=== PATIENT | female | born 1950 ===

== ENCOUNTER → 2020-11-14 13:14 | Outpatient (BNVA) | payer MEDICARE, SELFPAY | PROVIDERS: Visit Provider Physician Assistant | DX: Z13.89 Encounter for screening for other disorder (principal) | CPT/HCPCS: Q3014 ==

== ENCOUNTER 2020-11-14 14:28 | Inpatient (IN) | payer MEDICARE, SELFPAY ==
[2020-11-14] VITALS (8 sets, daily range): BP systolic 87–109; BP diastolic 31–66; PULSE 41–57; RESP 16–18; TEMP 36.6–37.2; O2SAT 95–99; BMI 27.8
--- NOTE | ~2020-11-14 | XR_ITS ---
EXAMINATION: XR CHEST CLINICAL INFORMATION: Pneumonia COMPARISON: 10/30/2017 TECHNIQUE: Frontal view of the chest was obtained. FINDINGS: No significant abnormality is noted involving the heart, lungs, mediastinum, bony thorax or soft tissues. Previously seen streaky opacities at the lung bases in 2018 have resolved. XR/XR chest 1V IMPRESSION: Unremarkable examination.
--- NOTE | 2020-11-14 14:42 | ECG_ITS ---
Test Reason : BRADYCARDIA Blood Pressure : / mmHG Vent. Rate : 049 BPM Atrial Rate : 049 BPM P-R Int : 116 ms QRS Dur : 080 ms QT Int : 460 ms P-R-T Axes : 053 030 039 degrees QTc Int : 415 ms Sinus bradycardia Otherwise normal ECG When compared with ECG of 16-FEB-2019 10:45, No significant change was found Referred By: Generic ED Physician Electronically Signed By:EMERY ESTEVES
[2020-11-14 17:18] LABS: Hemoglobin 11.4 g/dl (12.0-16.0); Imm Gran Abs Auto 0.01 X10*3/uL (0.00-0.03); Imm Gran Pct Auto 0.2 % (0.0-0.4); PLT CLUMP 1; SCAN SMEAR FLAG 1
[2020-11-14 17:20] LABS: Basophils Percent Auto 0.7 % (0-2); Eosinophils Absolute Auto 0.2 X10*3/uL (0.0-0.4); Eosinophils Percent Auto 3.3 % (0-4); Hematocrit 35.7 % (37-47); Lymphocytes Absolute Auto 1.8 X10*3/uL (1.2-4.9); Lymphocytes Percent Auto 29.4 % (20-40); Mean Corpuscular HGB Conc 31.9 g/dl (31.0-35.0); Mean Corpuscular Hemoglobin 31.5 pg (27.0-33.0); Mean Corpuscular Volume 98.6 fL (80-98); Mean Platelet Volume 11.6 fL (9.4-12.3); Monocytes Absolute Auto 0.4 X10*3/uL (0.1-1.2); Monocytes Percent Auto 7.2 % (2-11); Neutrophils Absolute Auto 3.6 X10*3/uL (2.0-8.3); Neutrophils Percent Auto 59.2 % (45-73); Platelet Count 118 X10*3/uL (160-400); Red Blood Count 3.62 X10*6/uL (4.20-5.50); Red Cell Distribution Width 12.3 % (11.0-16.0); White Blood Count 6.1 X10*3/uL (4.8-10.8)
[2020-11-14 17:33] LABS: Anion Gap 11 (12-20); Blood Urea Nitrogen 19 mg/dL (9-16); Calcium 8.6 mg/dL (8.4-10.2); Carbon Dioxide 25 mmol/L (22-29); Chloride 107 mmol/L (96-108); Creatinine Clr Calc Pharmacy 51.7; Estimated Glomerular Filt Rate 56; Glucose Random 96 mg/dL (60-115); Sodium 138 mmol/L (135-145)
[2020-11-14 17:41] LABS: Troponin-I High Sensitivity 4.6 ng/L (<3.5-17.0)
[2020-11-14 17:44] LABS: Prothrombin Time 12.1 SEC (10.8-13.0)
[2020-11-14 17:47] LABS: Partial Thromboplastin Time 34.1 SEC (24.1-38.0)
[2020-11-14 17:56] LABS: Glucose Urine UA NEG (NEG); Leukocyte Esterase Urine NEG (NEG); Nitrite Urine NEG (NEG); PH 5.5 (5.0-8.0); Specific Gravity - Urine 1.025 (1.005-1.025); Urine Blood NEG (NEG); Urine Ketones NEG (NEG); Urine Protein NEG (NEG-TRACE)
[2020-11-14 18:01] LABS: Appearance Urine CLEAR; Color Urine YELLOW
[2020-11-14] MEDS: 0.9 % Sodium Chloride 1,000 ML 999 ML IV ×2 (18:09)
--- NOTE | 2020-11-14 18:38 | ED_ITS ---
HPI - General Adult General Chief complaint: Arrhythmia/Palpitations Stated complaint: LOW HEART RATE Time Seen by Provider: 11/14/20 19:59 Source: patient Mode of arrival: ambulatory Limitations: no limitations History of Present Illness HPI narrative: Patient presents to the ED for bradycardia. Patient was supposed to go for colonoscopy by gastroenterology today but wanted her vital signs she was found to be bradycardic. Patient denies having any symptoms. Patient denies ever having dizziness, chest pain, shortness of breath, weakness. Patient states at time of blood pressure was low she did not have any symptoms. Patient states presently in the ED she is asymptomatic. Patient denies any change in medication. Patient states only blood pressure medication lisinopril. Patient is not on any beta blockers. Patient states she takes trazadone and clonazepam and she states she did not take any extra dose of those meds. Patient denies any rectal bleeding. Related Data Home Medications Medication Instructions Recorded Confirmed clonazepam 1 tab PO BID PRN 11/14/20 11/14/20 lisinopril 1 tab PO DAILY 11/14/20 11/14/20 trazodone 1 tab PO BEDTIME 11/14/20 11/14/20 Allergies Allergy/AdvReac Type Severity Reaction Status Date / Time No Known Allergies Allergy Unverified 04/20/20 14:53 [No Known Allergies*] none Allergy Unknown Uncoded 02/03/20 00:00 Review of Systems Review of Systems: Yes all other systems are reviewed and are negative Constitutional: Constitutional: Reports as per HPI and Reports no additional constitutional complaints Eyes: Eyes: Reports as per HPI and Reports no additional eye complaints ENT: Reports system reviewed and no additional complaints, except as documented and Reports as per HPI Cardiovascular: Cardiovascular: Reports as per HPI and Reports no additional cardiovascular complaints Respiratory: Respiratory: Reports as per HPI and Reports no additional respi ratory complaints Gastrointestinal: Gastrointestinal: Reports as per HPI and Reports no additional gastrointestinal complaints Musculoskeletal: Musculoskeletal: Reports no additional musculoskeletal complaints and Reports as per HPI Neurologic: Reports system reviewed and no additional complaints, except as documented and Reports as per HPI Psychiatric: Psychiatric: Reports no additional psychiatric complaints and Reports as per HPI [facility] Social History Social History Advance Directives: No Advance Directives Information Provided: Yes Physical Exam Vital Signs: Vital Signs: Last Vital Signs Temp 98.9 F 11/14/20 18:10 Pulse 45 L 11/14/20 21:02 Resp 18 11/14/20 21:02 BP 109/60 11/14/20 21:02 Pulse Ox 97 11/14/20 21:02 Body Mass Index 27.8 Const: General: cooperative, healthy appearing, comfortable, no acute distress, well developed, alert, awake and Physically active HENMT: Head: Yes normal to inspection, Yes No palpable skull fracture present, Yes normocephalic and Yes atraumatic Eyes: General: appearance normal, both eyes and all related structures Neck: Neck: Yes normal visual inspection, Yes full ROM, Yes no l ymphadenopathy, Yes no meningeal signs, Yes trachea midline, Yes supple and No tender Chest: Chest palpation & inspection: normal inspection of the chest and normal palpation of entire chest wall Resp: Effort & Inspection: normal respiratory effort and able to speak in complete sentences Cardio: Jugular venous distension: no JVD Heart sounds: S1 normal heart sound present and S2 normal heart sound present GI: Inspection: Yes normal to inspection Palpation (GI): Soft to palpation, not firm, nontender, no guarding and not rigid : General: No CVA tenderness and Yes no CVA tenderness Back/Spine/Pelvis: Back: no CVA tenderness, No CVA tenderness and No back tenderness Skin: General skin exam: no rashes or lesions noted and elasticity normal Neuro: Other: Negative nystagmus. Negative pronator drift. All extremities equal strength and 5+. Negative slurred speech. Negative Romberg. Rapid hand and [id number] test intact General: gait normal, no meningeal signs and CN's II-XI intact bilaterally Cranial nerves: Yes CN's II-XII intact bilaterally Extrem: General: Yes normal to inspection and Yes full ROM Course Course Course Narrative: Patient's sinus bradycardic. Patient presently asymptomatic. EKG shows sinus Abundio. Patient will have cardiac evaluation to make sure there is no heart attack. Source of infection will also be searched to make sure bradycardia is not caused by an infection. Patient will have orthostatics done and fluids Reevaluation(s) Reevaluation #1: Monitor heart rate went up to 57 and then went back down to 40s. Still asymptomatic. Reevaluation #2: Patient's orthostatics were negative. Patient heart rate dropped to 38 and then went back up to 48. Patient still is asymptomatic. Patient received IV fluids. No source of infection. Patient's chest x-ray UA normal. Case presented to hospitalist for admission. Hospitalist is agreeable to plan for admission for sinus bradycardia. Once again not suspecting stroke. Negative for any neuro deficit. Medical Decision Making MDM Narrative Medical decision making narrative: Bradycardia Lab Data Result diagrams: 11/14/20 17:01 11/14/20 17:01 Labs: Lab Results 11/14/20 11/14/20 11/14/20 Range/Units 17: 17:01 17:01 WBC 6.1 (4.8-10.8) X10*3/uL RBC 3.62 L (4.20-5.50) X10*6/uL Hgb 11.4 L (12.0-16.0) g/dl Hct 35.7 L (37-47) % MCV 98.6 H (80-98) fL MCH 31.5 (27.0-33.0) pg MCHC 31.9 (31.0-35.0) g/dl RDW 12.3 (11.0-16.0) % Plt Count 118 L (160-400) X10*3/uL MPV 11.6 (9.4-12.3) fL Immature Gran % (Auto) 0.2 (0.0-0.4) % Neut % (Auto) 59.2 (45-73) % Lymph % (Auto) 29.4 (20-40) % [place] % (Auto) 7.2 (2-11) % Eos % (Auto) 3.3 (0-4) % Baso % (Auto) 0.7 (0-2) % Lymph # (Auto) 1.8 (1.2-4.9) X10*3/uL [place] # (Auto) 0.4 (0.1-1.2) X10*3/uL Eos # (Auto) 0.2 (0.0-0.4) X10*3/uL Baso # (Auto) 0.0 (0.0-0.2) X10*3/uL Abs Immat Gran (auto) 0.01 (0.00-0.03) X10*3/uL Absolute Neuts (auto) 3.6 (2.0-8.3) X10*3/uL Absolute Nucleated RBC 0.000 (0.0-0.012) X10*3/uL Nucleated RBC % (auto) 0.0 (0.0-0.2) /100WBC PT 12.1 (10.8-13.0) SEC INR 1.0 (0.9-1.1) APTT 34.1 (24.1-38.0) SEC Hold Blue Top SEE NOTE Sodium 138 (135-145) mmol/L Potassium 5.0 (3.3-5.1) mmol/L Chloride 107 (96-108) mmol/L Carbon Dioxide 25 (22-29) mmol/L Anion Gap 11 L (12-20) BUN 19 H (9-16) mg/dL Creatinine 0.98 (0.5-1.4) mg/dL Estim Creat Clear Calc 51.7 Estimated GFR 56 Random Glucose 96 (60-115) mg/dL Calcium 8.6 (8.4-10.2) mg/dL Troponin I High Sens (<3.5-17.0) ng/L Urine Color Urine Appearance Urine pH (5.0-8.0) Ur Specific [place] (1.005-1.025) Urine Protein (NEG-TRACE) MG/DL Urine Glucose (UA) (NEG) MG/DL Urine Ketones (NEG) MG/DL Urine Blood (NEG) Urine Nitrite (NEG) Ur Leukocyte Esterase (NEG) 11/14/20 11/14/20 Range/Units 17:01 17:49 WBC (4.8-10.8) X10*3/uL RBC (4.20-5.50) X10*6/uL Hgb (12.0-16.0) g/dl Hct (37-47) % MCV (80-98) fL MCH (27.0-33.0) pg MCHC (31.0-35.0) g/dl RDW (11.0-16.0) % Plt Count (160-400) X10*3/uL MPV (9.4-12.3) fL Immature Gran % (Auto) (0.0-0.4) % Neut % (Auto) (45-73) % Lymph % (Auto) (20-40) % [place] % (Auto) (2-11) % Eos % (Auto) (0-4) % Baso % (Auto) (0-2) % Lymph # (Auto) (1.2-4.9) X10*3/uL [place] # (Auto) (0.1-1.2) X10*3/uL Eos # (Auto) (0.0-0.4) X10*3/uL Baso # (Auto) (0.0-0.2) X10*3/uL Abs Immat Gran (auto) (0.00-0.03) X10*3/uL Absolute Neuts (auto) (2.0-8.3) X10*3/uL Absolute Nucleated RBC (0.0-0.012) X10*3/uL Nucleated RBC % (auto) (0.0-0.2) /100WBC PT (10.8-13.0) SEC INR (0.9-1.1) APTT (24.1-38.0) SEC Hold Blue Top Sodium (135-145) mmol/L Potassium (3.3-5.1) mmol/L Chloride (96-108) mmol/L Carbon Dioxide (22-29) mmol/L Anion Gap (12-20) BUN (9-16) mg/dL Creatinine (0.5-1.4) mg/dL Estim Creat Clear Calc Estimated GFR Random Glucose (60-115) mg/dL Calcium (8.4-10.2) mg/dL Troponin I High Sens 4.6 (<3.5-17.0) ng/L Urine Color YELLOW Urine Appearance CLEAR Urine pH 5.5 (5.0-8.0) Ur Specific [place] 1.025 (1.005-1.025) Urine Protein NEG (NEG-TRACE) MG/DL Urine Glucose (UA) NEG (NEG) MG/DL Urine Ketones NEG (NEG) MG/DL Urine Blood NEG (NEG) Urine Nitrite NEG (NEG) Ur Leukocyte Esterase NEG (NEG) ECG Data Interpretation: Sinus bradycardia. First-degree 49. Pr interval 116. QRS 80. QTC 415. Negative STEMI Discharge Plan Discharge Clinical Impression: Bradycardia Patient Disposition: Admitted As Inpatient
--- NOTE | 2020-11-14 20:49 | P.HPHOSP_ITS ---
History of Present Illness Date of Service: 11/14/20 Chief Complaint: Bradycardia 70-year-old female with a past medical history of hypertension, anxiety presented to the hospital with a chief complaint of bradycardia. Patient reported that she went to the gastroenterology clinic for colonoscopy today where she was noted to have bradycardia subsequently sent to the ER for further evaluation. Patient denies any lightheadedness dizziness. Denies any recent travel sick contacts. Denies any falls or syncopal episodes. Denies any numbness tingling. Denies any fever chills cough. Denies any GI or symptom s. Review of all other systems is negative except mentioned above ER course: Per ER team patient was asymptomatic. Patient noted to be bradycardic to low 40s. Even noted couple readings of 38. Patient remained asymptomatic. Patient also had an episode of low blood pressure-given IV fluids. Blood pressure improved to 109/52. Admitted to the hospital for further management PMFSH Social History Alcohol intake: never Smoking Status: Never smoker service: No Current occupational status: retired [employer] Allergies Allergy/AdvReac Type Severity Reaction Status Date / Time No Known Allergies Allergy Unverified 04/20/20 14:53 [No Known Allergies*] none Allergy Unknown Uncoded 02/03/20 00:00 Home Medications Medication Instructions Recorded Confirmed Last Taken Type clonazepam 1 tab PO BID PRN 11/14/20 11/14/20 Unknown History lisinopril 1 tab PO DAILY 11/14/20 11/14/20 Unknown History trazodone 1 tab PO BEDTIME 11/14/20 11/14/20 Unknown History Physical Exam Vital Signs and Narrative: Vital Signs: Last Vital Signs Temp 98.9 F 11/14/20 18:10 Pulse 43 L 11/14/20 18:57 Resp 16 11/14/20 18:57 BP 109/52 L 11/14/20 18:57 Pulse Ox 99 11/14/20 18:57 Body Mass Index 27.8 Gen: Appears be in no acute distress HEENT: NCAT, Moist mucosa. Pulmonary: Vesicular breath sounds, fair air entry CVS: Normal S1-S2 Abdomen: BS+, Soft, Nontender Extremities: Warm well perfused Neuro: Alert and awake. Grossly nonfocal Results Labs CBC and Chem 7: 11/15/20 06:50 11/15/20 06:50 Labs: Laboratory Results - last 24 hr 11/14/20 11/14/20 11/14/20 17:01 17:01 17:01 MCV 98.6 H MCH 31.5 MCHC 31.9 RDW 12.3 Plt Count 118 L MPV 11.6 Immature Gran % (Auto) 0.2 Neut % (Auto) 59.2 Lymph % (Auto) 29.4 [place] % (Auto) 7.2 Eos % (Auto) 3.3 Baso % (Auto) 0.7 Lymph # (Auto) 1.8 [place] # (Auto) 0.4 Eos # (Auto) 0.2 Baso # (Auto) 0.0 Abs Immat Gran (auto) 0.01 Absolute Neuts (auto) 3.6 Absolute Nucleated RBC 0.000 Nucleated RBC % (auto) 0.0 PT 12.1 INR 1.0 APTT 34.1 Hold Blue Top SEE NOTE Anion Gap 11 L Estim Creat Clear Calc 51.7 Estimated GFR 56 Random Glucose 96 Calcium 8.6 Troponin I High Sens Urine Color Urine Appearance Urine pH Ur Specific [place] Urine Protein Urine Glucose (UA) Urine Ketones Urine Blood Urine Nitrite Ur Leukocyte Esterase 11/14/20 11/14/20 17:01 17:49 MCV MCH MCHC RDW Plt Count MPV Immature Gran % (Auto) Neut % (Auto) Lymph % (Auto) [place] % (Auto) Eos % (Auto) Baso % (Auto) Lymph # (Auto) [place] # (Auto) Eos # (Auto) Baso # (Auto) Abs Immat Gran (auto) Absolute Neuts (auto) Absolute Nucleated RBC Nucleated RBC % (auto) PT INR APTT Hold Blue Top Anion Gap Estim Creat Clear Calc Estimated GFR Random Glucose Calcium Troponin I High Sens 4.6 Urine Color YELLOW Urine Appearance CLEAR Urine pH 5.5 Ur Specific [place] 1.025 Urine Protein NEG Urine Glucose (UA) NEG Urine Ketones NEG Urine Blood NEG Urine Nitrite NEG Ur Leukocyte Esterase NEG Imaging Radiologist's Impressions: Impressions Chest X-Ray 11/14/20 18:05 IMPRESSION: Unremarkable examination. Assessment and Plan (1) Bradycardia: Status: Acute 70-year-old female with a past medical history of anxiety, hypertension on lisinopril presented to the hospital with a chief complaint of bradycardia. Bradycardia: Asymptomatic. Will monitor on telemetry. Will obtain TSH and echocardiogram. Cardiology consult for further recommendations Bedside pacers Hypertension: Patient on lisinopril at home. Patient had an episode of low blood pressure in the ER. Asymptomatic. Continue gentle IV fluids. Hold home antihypertensives. History of anxiety: Continue home: Aspirin. DVT prophylaxis: SCD boots Code status: Full code
[2020-11-14 21:44] LABS: COVID-19 Test Negative (Negative)
[2020-11-15] VITALS (8 sets, daily range): BP systolic 122–155; BP diastolic 62–80; PULSE 48–64; RESP 18–26; TEMP 36.7–37.1; O2SAT 97–98
[2020-11-15] MEDS: 0.9 % Sodium Chloride Flush 3 ML SYRINGE IVFLUSH (00:26)
[2020-11-15] MEDS: 0.9 % Sodium Chloride 1,000 ML 100 ML IVCONT (00:26)
[2020-11-15 07:01] LABS: MANUAL DIFF FLAG NO
[2020-11-15 07:12] LABS: Basophils Percent Auto 0.6 % (0-2); Eosinophils Absolute Auto 0.2 X10*3/uL (0.0-0.4); Eosinophils Percent Auto 3.8 % (0-4); Hematocrit 32.9 % (37-47); Hemoglobin 10.9 g/dl (12.0-16.0); Imm Gran Abs Auto 0.01 X10*3/uL (0.00-0.03); Imm Gran Pct Auto 0.2 % (0.0-0.4); Lymphocytes Percent Auto 43.3 % (20-40); Mean Corpuscular HGB Conc 33.1 g/dl (31.0-35.0); Mean Corpuscular Hemoglobin 32.3 pg (27.0-33.0); Mean Corpuscular Volume 97.6 fL (80-98); Mean Platelet Volume 11.7 fL (9.4-12.3); Monocytes Absolute Auto 0.4 X10*3/uL (0.1-1.2); Monocytes Percent Auto 7.5 % (2-11); Neutrophils Absolute Auto 2.1 X10*3/uL (2.0-8.3); Neutrophils Percent Auto 44.6 % (45-73); Platelet Count 104 X10*3/uL (160-400); Red Blood Count 3.37 X10*6/uL (4.20-5.50); Red Cell Distribution Width 12.1 % (11.0-16.0); White Blood Count 4.7 X10*3/uL (4.8-10.8)
[2020-11-15 07:31] LABS: Anion Gap 8 (12-20); Blood Urea Nitrogen 15 mg/dL (9-16); Calcium 8.3 mg/dL (8.4-10.2); Carbon Dioxide 22 mmol/L (22-29); Chloride 115 mmol/L (96-108); Creatinine Clr Calc Pharmacy 62.6; Estimated Glomerular Filt Rate > 60; Glucose Random 85 mg/dL (60-115); Potassium 4.6 mmol/L (3.3-5.1); Sodium 140 mmol/L (135-145)
--- NOTE | 2020-11-15 07:42 | PC.NURSE ---
UP TO BR. AMB WITHOUT DIFFICULTY. IV SITE PATENT. NO C/O
[2020-11-15 07:52] LABS: Thyroid Stimulating Hormone 0.56 uIU/mL (0.32-4.0)
--- NOTE | 2020-11-15 09:30 | MHC.CM.PN ---
pt lives alone in her apt. she reports that she is independent in her care. she does have a son that lives in the area that can help, but this is limited as he works . pt is reporting that she willl need a ride home at [facility] courtesy van. she ambulates s the use of any AD. pt denies the need for vna at or. dc plan is home no svcs. cm to cont. to follow.
--- NOTE | 2020-11-15 10:47 | P.CONCA_ITS ---
History of Present Illness History of Present Illness Date of Service: 11/15/20 Consult reason: other (Bradycardia) Chief complaint: Bradycardia Narrative: This is a cardiology consultation regarding bradycardia. She has a history of hypertension. It appears that she went for a colonoscopy and was found to have bradycardia and then sent to the ER. She denies any lightheadedness or presyncopal symptoms. She also denies any chest pain or shortness of breath or in fact any other cardiac symptoms. While in the ER, her heart rates has been in the 40s overnight and currently it is in the low 50s. She feels well. No history of any coronary disease myocardial infarction or any other cardiac concerns. Review of Systems Review of Systems: Yes all other systems are reviewed and are negative Cardiovascular: Cardiovascular: Reports as per HPI, Reports no additional cardiovascular complaints, Denies acrocyanosis, Denies cool extremities, Denies painful fingertips, Denies chest pain, Denies chest pain at rest, Denies diaphoresis, Denies syncope, Denies irregular heart rhythm, Denies claudication, Denies leg edema, Denies lightheadedness, Denies palpitations and Denies dyspnea Respiratory: Respiratory: Denies dyspnea Neurologic: Denies syncope Endocrine: Endocrine: Denies palpitations PMFSH Social History Social History Alcohol intake: never Smoking Status: Never smoker Use of substances other than those prescribed or required for medical reasons: No Advance Directives: No Advance Directives Information Provided: Yes service: No Current occupational status: retired [employer] Allergies Allergy/AdvReac Type Severity Reaction Status Date / Time No Known Allergies Allergy Unverified 04/20/20 14:53 [No Known Allergies*] none Allergy Unknown Uncoded 02/03/20 00:00 Active Medications: Current Medications Generic Name Dose Route Start Last Admin Trade Name Freq PRN Reason Stop Dose Admin Acetaminophen 650 mg 11/14/20 20:47 Acetaminophen 325 Mg Tablet PO Q6H PRN Pain, Mild (Pain Scale 1-3) Clonazepam 0.5 mg 11/15/20 02:24 Clonazepam 0.5 Mg Tablet PO BID PRN anxiety Sodium Chloride 1,000 mls @ 100 mls/hr 11/14/20 21:00 11/15/20 10:24 Ns IVCONT Not Given .Q10H KENIA Magnesium Hydroxide 30 ml 11/14/20 20:47 Milk Of Magnesia 30 Ml Oral.Susp PO DAILY PRN Constipation Pharmacy Consult 1 each 11/14/20 21:15 Consult Rx Perform Med Rec MISCELLANE ONCE PRN Consult order Sodium Chloride 3 ml 11/15/20 00:00 11/15/20 09:16 0.9 % Sodium Chloride Flush 3 Ml Syringe IVFLUSH Not Given QSHIFT [facility] Trazodone HCl 50 mg 11/15/20 21:00 Trazodone Hcl 50 Mg Tablet PO BEDTIME [facility] Home Medications Medication Instructions Recorded Confirmed Last Taken Type clonazepam 1 tab PO BID PRN 11/14/20 11/14/20 Unknown History lisinopril 1 tab PO DAILY 11/14/20 11/14/20 Unknown History trazodone 1 tab PO BEDTIME 11/14/20 11/14/20 Unknown History Physical Exam Vital Signs: Vital Signs: Last Vital Signs Temp 98.7 F 11/15/20 07:16 Pulse 53 11/15/20 07:41 Resp 26 H 11/15/20 07:41 BP 145/62 H 11/15/20 07:41 Pulse Ox 98 11/15/20 07:41 Body Mass Index 27.8 Const: General: cooperative, comfortable and no acute distress Orientation/consciousness: patient oriented x3 HENMT: Other: Unremarkable Neck: Neck: Yes normal visual inspection Chest: Chest palpation & inspection: normal inspection of the chest Resp: Auscultation: clear to auscultation bilaterally, no crackles and no wheezes Cardio: Jugular venous distension: no JVD Palpation: normal PMI Heart sounds: S1 normal heart sound present, S2 normal heart sound present, no gallops, no murmurs and no rubs GI: Palpation (GI): Soft to palpation Back/Spine/Pelvis: Other: unremarkable Skin: General skin exam: no rashes or lesions noted Neuro: General: patient oriented x3 Extrem: General: Yes no clubbing, cyanosis or edema Psych: Mental Status: mental status grossly normal Results Labs and Meds Result diagrams: 11/15/20 06:50 11/15/20 06:50 Lab results: Laboratory Results - last 24 hr 11/14/20 11/14/20 11/14/20 17:01 17:01 17:01 WBC 6.1 RBC 3.62 L Hgb 11.4 L Hct 35.7 L MCV 98.6 H MCH 31.5 MCHC 31.9 RDW 12.3 Plt Count 118 L MPV 11.6 Immature Gran % (Auto) 0.2 Neut % (Auto) 59.2 Lymph % (Auto) 29.4 [place] % (Auto) 7.2 Eos % (Auto) 3.3 Baso % (Auto) 0.7 Lymph # (Auto) 1.8 [place] # (Auto) 0.4 Eos # (Auto) 0.2 Baso # (Auto) 0.0 Abs Immat Gran (auto) 0.01 Absolute Neuts (auto) 3.6 Absolute Nucleated RBC 0.000 Nucleated RBC % (auto) 0.0 PT 12.1 INR 1.0 APTT 34.1 Hold Blue Top SEE NOTE Sodium 138 Potassium 5.0 Chloride 107 Carbon Dioxide 25 Anion Gap 11 L BUN 19 H Creatinine 0.98 Estim Creat Clear Calc 51.7 Estimated GFR 56 Random Glucose 96 Calcium 8.6 Troponin I High Sens TSH Urine Color Urine Appearance Urine pH Ur Specific [place] Urine Protein Urine Glucose (UA) Urine Ketones Urine Blood Urine Nitrite Ur Leukocyte Esterase COVID-19 (KIERAN) COVID-CE2 [employer] 11/14/20 11/14/20 11/14/20 17:01 17:49 21:24 WBC RBC Hgb Hct MCV MCH MCHC RDW Plt Count MPV Immature Gran % (Auto) Neut % (Auto) Lymph % (Auto) [place] % (Auto) Eos % (Auto) Baso % (Auto) Lymph # (Auto) [place] # (Auto) Eos # (Auto) Baso # (Auto) Abs Immat Gran (auto) Absolute Neuts (auto) Absolute Nucleated RBC Nucleated RBC % (auto) PT INR APTT Hold Blue Top Sodium Potassium Chloride Carbon Dioxide Anion Gap BUN Creatinine Estim Creat Clear Calc Estimated GFR Random Glucose Calcium Troponin I High Sens 4.6 TSH Urine Color YELLOW Urine Appearance CLEAR Urine pH 5.5 Ur Specific [place] 1.025 Urine Protein NEG Urine Glucose (UA) NEG Urine Ketones NEG Urine Blood NEG Urine Nitrite NEG Ur Leukocyte Esterase NEG COVID-19 (KIERAN) Negative COVID-CE2 [employer] See Note 11/15/20 11/15/20 11/15/20 06:50 06:50 06:50 WBC 4.7 L RBC 3.37 L Hgb 10.9 L Hct 32.9 L MCV 97.6 MCH 32.3 MCHC 33.1 RDW 12.1 Plt Count 104 L MPV 11.7 Immature Gran % (Auto) 0.2 Neut % (Auto) 44.6 L Lymph % (Auto) 43.3 H [place] % (Auto) 7.5 Eos % (Auto) 3.8 Baso % (Auto) 0.6 Lymph # (Auto) 2.0 [place] # (Auto) 0.4 Eos # (Auto) 0.2 Baso # (Auto) 0.0 Abs Immat Gran (auto) 0.01 Absolute Neuts (auto) 2.1 Absolute Nucleated RBC 0.000 Nucleated RBC % (auto) 0.0 PT INR APTT Hold Blue Top Sodium 140 Potassium 4.6 Chloride 115 H Carbon Dioxide 22 Anion Gap 8 L BUN 15 Creatinine 0.81 Estim Creat Clear Calc 62.6 Estimated GFR > 60 Random Glucose 85 Calcium 8.3 L Troponin I High Sens TSH 0.56 Urine Color Urine Appearance Urine pH Ur Specific [place] Urine Protein Urine Glucose (UA) Urine Ketones Urine Blood Urine Nitrite Ur Leukocyte Esterase COVID-19 (KIERAN) COVID-19 Clin Com ECG Attestation: I personally reviewed and interpreted this ECG as follows: Interpretation: EKG from yesterday with sinus bradycardia at 49/Min; no significant ST-T changes and with normal ND/QTc. Telemetry with overnight rates in the 40s. Currently 52/Min. Imaging Radiologist's impression: Impressions Chest X-Ray 11/14/20 18:05 IMPRESSION: Unremarkable examination. Assessment and Plan (1) Sinus bradycardia by electrocardiogram: Status: Acute High sensitivity troponin unremarkable at 4.6. Overall, she has benign sinus bradycardia. Not on any beta-blockers or calcium channel blockers at home. Clinically, examination is unremarkable. She may be discharged home.
--- NOTE | 2020-11-15 11:00 | CA_ITS ---
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 The visually estimated ejection fraction is between 65-70%. - No obvious valvular pathology seen on this study. - Mild pulmonary hypertension is present. Findings Left Ventricle Normal left ventricular cavity size. There is mildly increased left ventricular wall thickness. The left ventricular systolic function is normal. The visually estimated ejection fraction is between 65-70%. There is no evidence of regional wall motion abnormalities. Diastolic function is normal for age. Right Ventricle Normal right ventricular cavity size and systolic function. Atria Both atria are normal in size. Aortic Valve There is a normal trileaflet aortic valve. There is no aortic valve stenosis. There is no aortic valve regurgitation. Mitral Valve The mitral valve appears normal. There is trace mitral valve regurgitation. There is no mitral valve stenosis. Pulmonic Valve The pulmonic valve was not well visualized. Tricuspid Valve Normal tricuspid valve structure. There is mild tricuspid valve regurgitation. The right ventricular systolic pressure is 40 mmHg. Mild pulmonary hypertension is present. Great Vessels The aorta was not well visualized. The aortic annulus is normal in size. Venous The inferior vena cava is normal in size and collapses greater than 50% with inspiration. Pericardium/Pleural There is no evidence of pericardial effusion. Prior Study Comparison No prior study available for comparison. Recommendations, Care & Conclusions No obvious valvular pathology seen on this study. Measurements 2D Linear Measurements IVSd: 1.09 0.6-0.9/0.6-1.0 cm LVIDd: 4.28 3.9-5.3/4.2-5.9 cm LVIDd Index: 2.39 2.4-3.2/2.2-3.1 cm/m2 LVIDs: 2.64 2.0-3.6 cm LVPWd: 1.06 0.7-1.1 cm Ao Root: 3.10 2.1-3.5 cm LA Diam: 3.30 2.7-3.8/3.0-4.0 cm LAIDs Index: 1.84 1.5-2.3 cm/m2 LV Mass: 194.94 67-162/88-224 g LV Mass Index: 108.91 43-95/49-115 g/m2 LVOT Diam: 2.00 3.0+(-)1.3 cm Mitral Valve MV Pk E: 0.99 MV PK A: 1.15 MV Decel Time: 158.00 E/A: 0.90 E'Lateral: 9.09 E'Medial: 9.28 E/E' Med: 10.70 E/E' Lat: 10.90 PHT: 46.00 MVA PHT: 4.78 Decel Anderson: 6.28 Aortic Valve AoV Pk Raza: 1.65 AoV Mn Raza: 1.07 AoV VTI: 0.39 AoV Pk Grad: 11.00 Aov Mn Grad: 6.00 GAYATRI Cont.VTI: 2.12 LVOT LVOT Pk Raza: 1.16 LVOT Mn Raza: 0.74 LVOT VTI: 0.27 LVOT Pk Grad: 5.00 LVOT Mn Grad: 3.00 LVOT Diam: 2.00 LVOT Area: 3.14 Diastolic Function MV Pk E: 0.99 MV Pk A: 1.15 E/A: 0.90 E'Medial: 9.28 E/E' Med: 10.70 E' Laterial: 9.09 E/E' Lat: 10.90 Tricuspid Valve TR Pk Raza: 2.89 TR Pk Grad: 33.00 RA Press: 3.00 RVSP: 40.00 Great Vessels Aorta Ao Root-2D: 3.10 2.0-3.7 cm Ao Asc: 3.80 2.1-3.4 cm Pulmonary Valve PV Pk Raza: 0.84 Peak PV Grad: 3.00 Updated in Other Vendor System with Status of Final Wong Cardenas MD electronically signed on 11/15/2020 12:30:23 PM with status of Final
--- NOTE | 2020-11-15 12:13 | P.DS_ITS ---
DS: Providers Provider Date of Service: 11/15/20 Date of admission: 11/14/20 20:47 Primary care physician: Divina Hill MD Consults: 11/14/20 20:47 Consult to Cardiology Routine Consulting Provider: Wong Cardenas Reason for consultation: Bradycardia DS: Diagnosis Discharge Diagnosis (1) Sinus bradycardia by electrocardiogram: Status: Acute DS: Medications Discharge Medications Home Medications: Home Medications Medication Instructions Recorded Confirmed clonazepam 1 tab PO BID PRN 11/14/20 11/14/20 lisinopril 1 tab PO DAILY 11/14/20 11/14/20 trazodone 1 tab PO BEDTIME 11/14/20 11/14/20 DS: Summary Hospital Course Hospital Course: patient was sent in for sinus bradycardia, she was asymptomatic and seen by cardiology who recommended no intervention. Time Spent with Patient Time attestation: Total time spent providing and/or coordinating discharge services: Discharge coordination time: Greater than 30 minutes Physical Exam Vital Signs: Vital Signs: Last Vital Signs Temp 98.7 F 11/15/20 07:16 Pulse 48 L 11/15/20 12:00 Resp 18 11/15/20 12:00 BP 122/65 11/15/20 12:00 Pulse Ox 98 11/15/20 07:41 Body Mass Index 27.8 General: AO X 3, no acute distress Resp: CTA bilateral CVS: S1,S2,RRR GI: soft, non tender, non distended Neuro: motor grossly intact Psych: appropriate affect DS: Data Data Completed and Pending Labs on day of discharge: Laboratory Results - last 24 hr 11/14/20 11/14/20 11/14/20 17:01 17:01 17:01 WBC 6.1 RBC 3.62 L Hgb 11.4 L Hct 35.7 L MCV 98.6 H MCH 31.5 MCHC 31.9 RDW 12.3 Plt Count 118 L MPV 11.6 Immature Gran % (Auto) 0.2 Neut % (Auto) 59.2 Lymph % (Auto) 29.4 [place] % (Auto) 7.2 Eos % (Auto) 3.3 Baso % (Auto) 0.7 Lymph # (Auto) 1.8 [place] # (Auto) 0.4 Eos # (Auto) 0.2 Baso # (Auto) 0.0 Abs Immat Gran (auto) 0.01 Absolute Neuts (auto) 3.6 Absolute Nucleated RBC 0.000 Nucleated RBC % (auto) 0.0 PT 12.1 INR 1.0 APTT 34.1 Hold Blue Top SEE NOTE Sodium 138 Potassium 5.0 Chloride 107 Carbon Dioxide 25 Anion Gap 11 L BUN 19 H Creatinine 0.98 Estim Creat Clear Calc 51.7 Estimated GFR 56 Random Glucose 96 Calcium 8.6 Troponin I High Sens TSH Urine Color Urine Appearance Urine pH Ur Specific [place] Urine Protein Urine Glucose (UA) Urine Ketones Urine Blood Urine Nitrite Ur Leukocyte Esterase COVID-19 ([facility]) COVID-19 Clin Com 11/14/20 11/14/20 11/14/20 17:01 17:49 21:24 WBC RBC Hgb Hct MCV MCH MCHC RDW Plt Count MPV Immature Gran % (Auto) Neut % (Auto) Lymph % (Auto) [place] % (Auto) Eos % (Auto) Baso % (Auto) Lymph # (Auto) [place] # (Auto) Eos # (Auto) Baso # (Auto) Abs Immat Gran (auto) Absolute Neuts (auto) Absolute Nucleated RBC Nucleated RBC % (auto) PT INR APTT Hold Blue Top Sodium Potassium Chloride Carbon Dioxide Anion Gap BUN Creatinine Estim Creat Clear Calc Estimated GFR Random Glucose Calcium Troponin I High Sens 4.6 TSH Urine Color YELLOW Urine Appearance CLEAR Urine pH 5.5 Ur Specific [place] 1.025 Urine Protein NEG Urine Glucose (UA) NEG Urine Ketones NEG Urine Blood NEG Urine Nitrite NEG Ur Leukocyte Esterase NEG COVID-19 ([facility]) Negative COVID-19 Clin Com See Note 11/15/20 11/15/20 11/15/20 06:50 06:50 06:50 WBC 4.7 L RBC 3.37 L Hgb 10.9 L Hct 32.9 L MCV 97.6 MCH 32.3 MCHC 33.1 RDW 12.1 Plt Count 104 L MPV 11.7 Immature Gran % (Auto) 0.2 Neut % (Auto) 44.6 L Lymph % (Auto) 43.3 H [place] % (Auto) 7.5 Eos % (Auto) 3.8 Baso % (Auto) 0.6 Lymph # (Auto) 2.0 [place] # (Auto) 0.4 Eos # (Auto) 0.2 Baso # (Auto) 0.0 Abs Immat Gran (auto) 0.01 Absolute Neuts (auto) 2.1 Absolute Nucleated RBC 0.000 Nucleated RBC % (auto) 0.0 PT INR APTT Hold Blue Top Sodium 140 Potassium 4.6 Chloride 115 H Carbon Dioxide 22 Anion Gap 8 L BUN 15 Creatinine 0.81 Estim Creat Clear Calc 62.6 Estimated GFR > 60 Random Glucose 85 Calcium 8.3 L Troponin I High Sens TSH 0.56 Urine Color Urine Appearance Urine pH Ur Specific [place] Urine Protein Urine Glucose (UA) Urine Ketones Urine Blood Urine Nitrite Ur Leukocyte Esterase COVID-19 ([facility]) COVID-19 Clin Com Discharge Plan Discharge Patient Disposition: Home, Self-Care Discharge Diagnosis: sinus lalitha Referrals: Divina Lo MD [Primary Care Provider] - 1 Week Discharge Medications: Continued trazodone 50 mg tablet 1 tab PO BEDTIME RF: 0 clonazepam 0.5 mg tablet 1 tab PO BID PRN (Reason: anxiety) RF: 0 lisinopril 10 mg tablet 1 tab PO DAILY RF: 0 Discharge Orders: Discharge Order (Routine); Ordered 11/15/20 Ordered By: Ganesh Louie Activity on Discharge: As tolerated Stand Alone Forms: Patient Portal Discharge page Care Plan Goals: avoid syncope Health Concerns: sinus lalitha Plan of Treatment: no intervention, avoid HR slowing meds like beta blockers or CCB Assessment: see above
== END 2020-11-15 18:22 | disposition left against medical advice (07) | DRG 310 ==
LOC: HO.ED 16:28 → HO.EDOVER 20:52 → HO.IMC 11-15 18:22
PROVIDERS: Physician Assistant; Admitting Provider Hospitalist; Emergency Provider Emergency Medicine; PCP Internal Medicine; Visit Provider Internal Medicine
DX: R00.1 Bradycardia, unspecified (principal); I10 Essential (primary) hypertension; F41.9 Anxiety disorder, unspecified; Z20.822 Contact with and (suspected) exposure to COVID-19; Z79.899 Other long term (current) drug therapy
CPT/HCPCS: 36415; 71045; 80048; 81003; 84443; 84484; 85025; 85610; 85730; 87635; 93005; 93306; 96360; 99285; Q3014

== ENCOUNTER → 2020-12-27 14:24 | Outpatient (REF) | payer MEDICARE, SELFPAY | LOC: HO.CARD 14:24 | PROVIDERS: PCP Internal Medicine; Referring Provider Internal Medicine; Visit Provider Internal Medicine | DX: Z13.89 Encounter for screening for other disorder (principal) | CPT/HCPCS: 93226 ==

== ENCOUNTER → 2021-01-04 14:16 | Outpatient (REF) | payer MEDICARE, SELFPAY ==
--- NOTE | 2021-01-04 08:05 | ECG_ITS ---
Hook-up date: 2021-01-04 14:54:00 Duration: 47:59:00 Test Indications: BRADYCARDIA Medications: 27148 QRS complexes 2 Ventricular ectopics which represent <1 % of total QRS comp. 37 Supraventricular ectopics which represent <1 % of total QRS comp. * Paced QRS complexs which represent % of total QRS comp. VENTRICULAR ECTOPY 2 Isolated 0 Bigeminal Cycles 0 Couplets 0 Runs 0 Beats in Runs * Beats LONGEST at * BPM at :: -- * Beats FASTEST at * BPM at :: -- SUPRAVENTRICULAR ECTOPY 15 Isolated 1 Couplets 3 Runs 20 Beats in Runs 7 Beats LONGEST at 103 BPM at 20:44:23 2021-01-04 7 Beats FASTEST at 104 BPM at 22:03:01 2021-01-04 HEART RATES 37 MIN at 00:23:42 2021-01-05 52 AVG 107 MAX at 16:27:15 2021-01-04 LONGEST RR 1.7120 secs at 00:40:18 2021-01-05 S-T LEVELS Channel 1 - 128 mm at 14:54:00 2021-01-04 - 128 mm at 14:54:00 2021-01-04 Channel 2 - 128 mm at 14:54:00 2021-01-04 - 128 mm at 14:54:00 2021-01-04 Channel 3 - 128 mm at 03:41:31 -- - 128 mm at 03:41:31 Basic rhythm Normal sinus rhythm , 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
== END ==
LOC: HO.CARD 14:16
PROVIDERS: PCP Internal Medicine; Referring Provider Internal Medicine; Visit Provider Internal Medicine
DX: R00.1 Bradycardia, unspecified (principal)
CPT/HCPCS: 93226

== ENCOUNTER 2021-01-23 12:58 | Emergency (ER) | payer MEDICARE, SELFPAY ==
[2021-01-23 13:28] VITALS: BP 103/66; PULSE 50; RESP 18; TEMP 36.7; O2SAT 94; BMI 31.4
[2021-01-23] MEDS: cephALEXin 500 MG CAPSULE PO (14:21)
[2021-01-23] MEDS: Lidocaine HCl 1 % MPF 5 ML VIAL SUBCUT ×2 (14:21)
[2021-01-23 14:35] VITALS: BP 124/61; PULSE 47; RESP 18; TEMP 36.8; O2SAT 98
--- NOTE | 2021-01-23 16:29 | ED_ITS ---
HPI - Extremity Problem General Chief complaint: Extremity Injury, Upper Stated complaint: LUMP ON FINGER Time Seen by Provider: 01/23/21 14:14 History of Present Illness HPI Narrative: Patient complains of painful swelling around the nail bed on the right 3rd finger for 1 week, no fever no other rash Related Data Home Medications Medication Instructions Recorded Confirmed clonazepam 1 tab PO BID PRN 11/14/20 01/24/21 lisinopril 1 tab PO DAILY 11/14/20 01/24/21 trazodone 1 tab PO BEDTIME 11/14/20 01/24/21 cholecalciferol (vitamin D3) 25 25 mcg PO DAILY 01/24/21 01/24/21 mcg (1,000 unit) capsule vitamin B complex 1 tab PO DAILY 01/24/21 01/24/21 Allergies Allergy/AdvReac Type Severity Reaction Status Date / Time No Known Allergies Allergy Verified 01/24/21 15:01 [No Known Allergies*] Review of Systems Review of Systems: positive for right 3rd finger nail bed swelling Negatives are no fever no chills no numbness no weakness no tingling no joint pains Yes all other systems are reviewed and are negative PENDING SALE TO [facility] Past Medical History Source: nursing notes reviewed Medical History (Updated 01/24/21 @ 16:00 by Wong Cardenas MD) Anxiety Family History Family History (Updated 01/24/21 @ 15:12 by Wong Cardenas MD) Father Heart problem Mother Heart problem Social History Social History Alcohol intake: never service: No Current occupational status: retired Physical Exam Vital Signs: Vital Signs: Last Vital Signs Temp 98.3 F 01/23/21 14:35 Pulse 47 L 01/23/21 14:35 Resp 18 01/23/21 14:35 BP 124/61 01/23/21 14:35 Pulse Ox 98 01/23/21 14:35 Body Mass Index 31.4 general appearance no distress Head is normocephalic atraumatic Neck is supple Respiratory no distress Right 3rd finger has a paronychia on thel ulnar aspect, there is no joint swelling there is full range of motion in the joints, there is no numbness or weakness, neurovascular intact distal and tendon function is normal Course Course Course Narrative: procedure note right 3rd finger paronychia is cleansed with Betadine Anesthesia is 5 cc of 1% lidocaine digital block And it nail bed was raised with a scalpel and probed with blunt forceps with discharge of pus and a small amount of packing was placed and dressing was applied Discharge Plan Discharge Clinical Impression: Paronychia Patient Disposition: Home, Self-Care Additional Instructions: Return to ER or to the hand doctor's office for recheck in 2 days We need to check the wound and pull out the small piece of packing Tylenol as needed for pain Take antibiotics as prescribed Return any time for worse pain and swelling, spreading redness, any worse condition or any concerns Prescriptions: No Action trazodone 50 mg tablet 1 tab PO BEDTIME RF: 0 clonazepam 0.5 mg tablet 1 tab PO BID PRN (Reason: anxiety) RF: 0 lisinopril 10 mg tablet 1 tab PO DAILY RF: 0 cholecalciferol (vitamin D3) 25 mcg (1,000 unit) capsule 25 mcg PO DAILY RF: 0 vitamin B complex [B Complex-Vitamin B12] Tablet 1 tab PO DAILY RF: 0 Referrals: Marika Chakraborty MD [Physician] - 2 days (Cellulitis right 3rd finger tip, drained paronychia, wound check this week if possible) Interventions: ED Discharge Assessment Last Done: 01/23/21 16:35 Discharge Date/Time: 01/23/21 16:35
== END 2021-01-23 16:35 | disposition home or self-care (01) ==
PROVIDERS: Emergency Provider Emergency Medicine Emergency Medical Services; PCP Internal Medicine
DX: L03.011 Cellulitis of right finger (principal)
CPT/HCPCS: 10060; 99284

== ENCOUNTER → 2021-01-24 14:35 | Outpatient (BNVA) | payer MEDICARE, SELFPAY | PROVIDERS: PCP Internal Medicine; Visit Provider Internal Medicine | DX: Z01.810 Encounter for preprocedural cardiovascular examination (principal); R00.1 Bradycardia, unspecified; I27.20 Pulmonary hypertension, unspecified | CPT/HCPCS: 99212 ==

== ENCOUNTER 2021-06-17 11:02 | Emergency (ER) | payer MEDICARE, SELFPAY ==
--- NOTE | ~2021-06-17 | XR_ITS ---
EXAMINATION: XR CHEST CLINICAL INFORMATION: Syncope COMPARISON: Previous chest x-ray most recent November 2020 TECHNIQUE: 2 views of the chest were obtained. FINDINGS: The cardiac and mediastinal contours are stable. The lungs are clear. There is no pleural effusion or pneumothorax. There are degenerative changes of the spine. XR/XR chest 2V IMPRESSION: No evidence for acute disease in the chest.
--- NOTE | 2021-06-17 11:03 | ED_ITS ---
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 Patient tells me she was standing in [employer] [place] when she started to feel very dizzy and and started to see black in her vision. She started to fall and was caught by friends. There was no reported head strike or full loss of consciousness. Per EMS on arrival the patient had a systolic blood pressure of 70. She received 500 mL of normal saline with improvement of blood pressure to 90 systolic on arrival. She is telling me overall she is feeling much improved. She still has some mild dizziness that she explains as lightheadedness. Denies any presyncopal symptoms of chest pain, palpitations, shortness of breath, headache, nausea, vomiting. Patient tells me she did not eat or drink today. She did not sleep well last night due to some insomnia and anxiety. Patient tells me she has been taking clonazepam 1 mg twice daily as needed for anxiety for several years but ran out. She has not had her dose of clonazepam and about 48 hours. 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 Related Data Home Medications Medication Instructions Recorded Confirmed clonazepam 0.5 mg tablet 1 tab PO BID PRN 11/14/20 01/24/21 lisinopril 10 mg tablet 1 tab PO DAILY 11/14/20 01/24/21 trazodone 50 mg tablet 1 tab PO BEDTIME 11/14/20 01/24/21 cholecalciferol (vitamin D3) 25 25 mcg PO DAILY 01/24/21 01/24/21 mcg (1,000 unit) capsule vitamin B complex (B 1 tab PO DAILY 01/24/21 01/24/21 Complex-Vitamin B12) Allergies Allergy/AdvReac Type Severity Reaction Status Date / Time No Known Allergies Allergy Verified 01/24/21 15:01 [No Known Allergies*] Review of Systems Review of Systems: Yes all other systems are reviewed and are negative Constitutional: Constitutional: Reports no additional constitutional complaints, Denies body ache(s), Denies chills, Denies fever(s), Denies headache(s) and Denies weakness Eyes: Eyes: Reports no additional eye complaints and Denies change in vision ENT: Reports system reviewed and no additional complaints, except as documented, Reports dizziness, Denies headache(s), Denies nasal congestion, Denies nasal discharge and Denies neck pain Cardiovascular: Cardiovascular: Reports no additional cardiovascular complaints, Denies chest pain, Denies leg edema and Denies dyspnea Respiratory: Respiratory: Reports no additional respiratory complaints, Denies cough and Denies dyspnea Gastrointestinal: Gastrointestinal: Reports no additional gastrointestinal complaints, Denies abdominal pain, Denies diarrhea, Denies nausea and Denies vomiting Genitourinary: Genitourinary: Reports no additional female genitourinary complaints and Denies urinary incontinence Musculoskeletal: Musculoskeletal: Reports no additional musculoskeletal complaints, Denies back pain, Denies arthralgias, Denies joint swelling, Denies neck pain, Denies numbness and Denies tingling Integumentary/Breasts: Skin/Breast: Reports system reviewed and no additional complaints, except as docu and Denies rash Neurologic: Reports system reviewed and no additional complaints, except as documented, Denies Abnormal speech present, Reports dizziness, Denies headache(s), Denies numbness, Denies tingling and Denies weakness PMFSH Past Medical History Attestation statement: The following information was validated with the patient. Source: old records reviewed and nursing notes reviewed Medical History Anxiety Family History Family History Father Heart problem Mother Heart problem Social History Social History Alcohol intake: never Advance Directives: No Advance Directives Information Provided: No service: No Current occupational status: retired Physical Exam Vital Signs: Vital Signs: Last Vital Signs Temp 98.3 F 06/17/21 13:57 Pulse 74 06/17/21 13:57 Resp 18 06/17/21 13:57 BP 111/64 06/17/21 13:57 Pulse Ox 97 06/17/21 13:57 Body Mass Index 31.8 Const: General: cooperative, healthy appearing, comfortable and no acute distress Orientation/consciousness: patient oriented x3 Limitations: no limitations HENMT: Head: Yes normal to inspection Ears: hearing grossly normal bilaterally and TM's normal bilaterally General nose exam: Normal external nose present Face and sinus: Yes normal facial exam Mouth: Normal oral and palatal mucosa present Throat: Yes posterior oropharynx normal, Yes tonsils normal and Yes uvula midline Eyes: General: appearance normal, both eyes and all related structures Pupils: Equal, round and reactive pupils present Neck: Neck: Yes normal visual inspection, Yes full ROM and Yes no lymphadenopathy Chest: Chest palpation & inspection: normal inspection of the chest Resp: Effort & Inspection: normal respiratory effort Auscultation: clear to auscultation bilaterally Cardio: Rate: regular rate Rhythm: regular rhythm Peripheral pulses: Peripheral pulses 2+ throughout GI: Inspection: Yes normal to inspection Palpation (GI): Soft to palpation and nontender Auscultation: normal bowel sounds Back/Spine/Pelvis: Thoracic/Lumbar Spine: thoracic and lumbar spine normal to inspection Skin: General skin exam: no rashes or lesions noted Neuro: General: patient oriented x3, no focal motor deficits and normal sensation to monofilament Cranial nerves: Yes CN's II-XII intact bilaterally, Yes Equal, round and reactive pupils present, Yes Bilaterally intact EOM present, Yes Nystagmus not present, Yes Normal facial strength present and Yes Midline tongue present Cognition (Neuro): normal cognition Speech: No Abnormal speech present Motor exam (neuro): 5/5 motor strength present throughout Sensory Exam: Normal double simultaneous stimulation for sensation Coordination: [id number] test normal and [id number] test normal Extrem: General: Yes normal to inspection, Yes no pedal edema and Yes no calf tenderness Course Course Course Narrative: 71-year-old female coming from [employer] after near syncopal episode with preceding symptoms of feeling dizzy and vision going black. Patient was hypotensive for EMS on arrival and received some fluids with improvement of blood pressure. On arrival to the emergency department she is feeling improved. She is still complaining of some mild lightheadedness but overall feels better. Her exam is normal. Her vitals are stable. Will check labs, EKG, chest x-ray, orthostatic vital signs 1240-+orthostatics. Will give 1L NS. 1315-reviewed labs. They are unremarkable with the exception of mildly elevated troponin which may be secondary to episodes of hypotension. No chest pain or EKG changes. However due to syncopal episode will plan for repeat 3 hour troponin to rule out ACS. 1600-repeat troponin unchanged. Patient overall is feeling improved. Denies any dizziness. Blood pressure is stable. Patient is ambulatory with no difficulty. Plan for discharge home. Called and spoke to family. Reviewed worrisome signs and symptoms of when to return to the emergency department. Comfortable discharge home. MDM - Syncope MDM Narrative Medical decision making narrative: Less likely ACS with troponin x2 that is dealt with a normal EKG and no chest pain Differential Diagnosis Differential diagnosis: Likely syncope due to orthostatic hypotension, vasovagal syncope and dehydration Medical Records Attestation: I reviewed the patient's medical records. Lab Data Attestation: I reviewed the patient's lab results. Result diagrams: 06/17/21 12:02 06/17/21 12:02 Labs: Lab Results 06/17/21 06/17/21 06/17/21 Range/Units 11:52 12:02 12:02 WBC 6.2 (4.8-10.8) X10*3/uL RBC 3.40 L (4.20-5.50) X10*6/uL Hgb 10.8 L (12.0-16.0) g/dl Hct 33.1 L (37.0-47.0) % MCV 97.4 (80.0-98.0) fL MCH 31.8 (27.0-33.0) pg MCHC 32.6 (31.0-35.0) g/dl RDW 13.1 (11.0-16.0) % Plt Count 124 L (160-400) X10*3/uL MPV 11.4 (9.4-12.3) fL Immature Gran % (Auto) 0.3 (0.0-0.4) % Neut % (Auto) 78.5 H (45-73) % Lymph % (Auto) 13.8 L (20-40) % Caroline % (Auto) 6.1 (2-11) % Eos % (Auto) 0.8 (0-4) % Baso % (Auto) 0.5 (0-2) % Lymph # (Auto) 0.9 L (1.2-4.9) X10*3/uL Caroline # (Auto) 0.4 (0.1-1.2) X10*3/uL Eos # (Auto) 0.1 (0.0-0.4) X10*3/uL Baso # (Auto) 0.0 (0.0-0.2) X10*3/uL Abs Immat Gran (auto) 0.02 (0.00-0.03) X10*3/uL Absolute Neuts (auto) 4.9 (2.0-8.3) x10*3/uL Absolute Nucleated RBC 0.000 (0.0-0.012) X10*3/uL Nucleated RBC % (auto) 0.0 (0.0-0.2) /100WBC Smear Tech's Comments Not Reportable PT (9.9-13.0) SEC INR (0.9-1.1) Sodium 142 (135-145) mmol/L Potassium 4.0 (3.3-5.1) mmol/L Chloride 110 H (96-108) mmol/L Carbon Dioxide 22 (22-29) mmol/L Anion Gap 14 (12-20) BUN 14 (9-16) mg/dL Creatinine 0.96 (0.5-1.4) mg/dL Estim Creat Clear Calc 53.6 Estimated GFR 57 POC Glucose 81 (60-115) mg/dL Random Glucose 103 (60-115) mg/dL Calcium 8.3 L (8.4-10.2) mg/dL Magnesium 1.7 (1.6-2.6) mg/dL Total Bilirubin 0.9 (0.0-1.0) mg/dL Direct Bilirubin 0.3 (0.0-0.5) mg/dL AST 21 (5-31) U/L ALT 18 (0-31) U/L Alkaline Phosphatase 73 (39-117) U/L Troponin I High Sens (<3.5-17.0) ng/L Total Protein 6.1 L (6.5-8.0) g/dL Albumin 3.2 L (3.5-5.0) g/dL 06/17/21 06/17/21 06/17/21 Range/Units 12:02 12:02 15:13 WBC (4.8-10.8) X10*3/uL RBC (4.20-5.50) X10*6/uL Hgb (12.0-16.0) g/dl Hct (37.0-47.0) % MCV (80.0-98.0) fL MCH (27.0-33.0) pg MCHC (31.0-35.0) g/dl RDW (11.0-16.0) % Plt Count (160-400) X10*3/uL MPV (9.4-12.3) fL Immature Gran % (Auto) (0.0-0.4) % Neut % (Auto) (45-73) % Lymph % (Auto) (20-40) % Caroline % (Auto) (2-11) % Eos % (Auto) (0-4) % Baso % (Auto) (0-2) % Lymph # (Auto) (1.2-4.9) X10*3/uL Caroline # (Auto) (0.1-1.2) X10*3/uL Eos # (Auto) (0.0-0.4) X10*3/uL Baso # (Auto) (0.0-0.2) X10*3/uL Abs Immat Gran (auto) (0.00-0.03) X10*3/uL Absolute Neuts (auto) (2.0-8.3) x10*3/uL Absolute Nucleated RBC (0.0-0.012) X10*3/uL Nucleated RBC % (auto) (0.0-0.2) /100WBC Smear Tech's Comments PT 11.9 (9.9-13.0) SEC INR 1.0 (0.9-1.1) Sodium (135-145) mmol/L Potassium (3.3-5.1) mmol/L Chloride (96-108) mmol/L Carbon Dioxide (22-29) mmol/L Anion Gap (12-20) BUN (9-16) mg/dL Creatinine (0.5-1.4) mg/dL Estim Creat Clear Calc Estimated GFR POC Glucose (60-115) mg/dL Random Glucose (60-115) mg/dL Calcium (8.4-10.2) mg/dL Magnesium (1.6-2.6) mg/dL Total Bilirubin (0.0-1.0) mg/dL Direct Bilirubin (0.0-0.5) mg/dL AST (5-31) U/L ALT (0-31) U/L Alkaline Phosphatase (39-117) U/L Troponin I High Sens 36.1 H* 29.2 H* (<3.5-17.0) ng/L Total Protein (6.5-8.0) g/dL Albumin (3.5-5.0) g/dL Imaging Data Chest x-ray: Attestation: I personally reviewed and interpreted this imaging study as follows: Radiologist's impression: EXAMINATION: XR CHEST CLINICAL INFORMATION: Syncope COMPARISON: Previous chest x-ray most recent November 2020 TECHNIQUE: 2 views of the chest were obtained. FINDINGS: The cardiac and mediastinal contours are stable. The lungs are clear. There is no pleural effusion or pneumothorax. There are degenerative changes of the spine. XR/XR chest 2V IMPRESSION: No evidence for acute disease in the chest. ECG Data Attestation: I personally reviewed and interpreted this ECG as follows: ECG interpretation date: 06/17/21 ECG interpretation time: 11:16 Interpretation: Normal sinus rhythm with a sinus arrhythmia, normal IN, normal QRS, normal QT Discharge Plan Discharge Clinical Impression: Near syncope, Orthostatic hypotension Patient Disposition: Home, Self-Care Instructions: Near Syncope (ED) Additional Instructions: Eat frequent small meals Increase fluids, rest Change positions slowly Prescriptions: No Action trazodone 50 mg tablet 1 tab PO BEDTIME RF: 0 clonazepam 0.5 mg tablet 1 tab PO BID PRN (Reason: anxiety) RF: 0 lisinopril 10 mg tablet 1 tab PO DAILY RF: 0 cholecalciferol (vitamin D3) 25 mcg (1,000 unit) capsule 25 mcg PO DAILY RF: 0 vitamin B complex [B Complex-Vitamin B12] Tablet 1 tab PO DAILY RF: 0 Referrals: Divina Lo MD [Primary Care Provider] - 2 days Interventions: ED Discharge Assessment Last Done: 06/17/21 16:00 Discharge Date/Time: 06/17/21 16:01
--- NOTE | 2021-06-17 11:04 | ECG_ITS ---
Test Reason : GENERAL MEDICINE Blood Pressure : / mmHG Vent. Rate : 070 BPM Atrial Rate : 070 BPM P-R Int : 118 ms QRS Dur : 082 ms QT Int : 392 ms P-R-T Axes : 062 021 051 degrees QTc Int : 423 ms Normal sinus rhythm with sinus arrhythmia Normal ECG When compared with ECG of 14-NOV-2020 16:37, No significant change was found Heart rate has increased Referred By: Cristina Benitez Electronically Signed By:EMMANUEL SALGADO MD
[2021-06-17 11:33] VITALS: BP 106/69; BP 91/54; PULSE 78; PULSE 90; RESP 18; TEMP 36.6; O2SAT 96; O2SAT 97; BMI 31.8
[2021-06-17 11:56] LABS: Glucose, Whole Blood 81 mg/dL (60-115)
[2021-06-17 12:08] LABS: Hemoglobin 10.8 g/dl (12.0-16.0); Imm Gran Abs Auto 0.02 X10*3/uL (0.00-0.03); Imm Gran Pct Auto 0.3 % (0.0-0.4); Lymphocytes Percent Auto 13.8 % (20-40); MANUAL DIFF FLAG SCAN; Mean Platelet Volume 11.4 fL (9.4-12.3); PLT CLUMP 1; SCAN SMEAR FLAG 1
[2021-06-17 12:09] LABS: Basophils Percent Auto 0.5 % (0-2); Eosinophils Absolute Auto 0.1 X10*3/uL (0.0-0.4); Eosinophils Percent Auto 0.8 % (0-4); Hematocrit 33.1 % (37.0-47.0); Lymphocytes Absolute Auto 0.9 X10*3/uL (1.2-4.9); Mean Corpuscular HGB Conc 32.6 g/dl (31.0-35.0); Mean Corpuscular Hemoglobin 31.8 pg (27.0-33.0); Mean Corpuscular Volume 97.4 fL (80.0-98.0); Monocytes Absolute Auto 0.4 X10*3/uL (0.1-1.2); Monocytes Percent Auto 6.1 % (2-11); Neutrophils Absolute Auto 4.9 x10*3/uL (2.0-8.3); Neutrophils Percent Auto 78.5 % (45-73); Platelet Count 124 X10*3/uL (160-400); Red Cell Distribution Width 13.1 % (11.0-16.0); White Blood Count 6.2 X10*3/uL (4.8-10.8)
[2021-06-17 12:18] LABS: Prothrombin Time 11.9 SEC (9.9-13.0)
[2021-06-17 12:22] LABS: Alanine Aminotransferase 18 U/L (0-31); Albumin Level 3.2 g/dL (3.5-5.0); Alkaline Phosphatase 73 U/L (39-117); Anion Gap 14 (12-20); Aspartate Amino Transferase 21 U/L (5-31); Bilirubin Direct 0.3 mg/dL (0.0-0.5); Bilirubin Total 0.9 mg/dL (0.0-1.0); Blood Urea Nitrogen 14 mg/dL (9-16); Calcium 8.3 mg/dL (8.4-10.2); Carbon Dioxide 22 mmol/L (22-29); Chloride 110 mmol/L (96-108); Creatinine Clr Calc Pharmacy 53.6; Estimated Glomerular Filt Rate 57; Glucose Random 103 mg/dL (60-115); Magnesium 1.7 mg/dL (1.6-2.6); Sodium 142 mmol/L (135-145); Total Protein 6.1 g/dL (6.5-8.0)
[2021-06-17] MEDS: clonazePAM 0.5 MG TABLET PO (12:38)
[2021-06-17] MEDS: 0.9 % Sodium Chloride 1,000 ML 999 ML IV (12:39)
[2021-06-17 12:46] LABS: Troponin-I High Sensitivity 36.1 ng/L (<3.5-17.0)
[2021-06-17 13:57] VITALS: BP 111/64; PULSE 74; RESP 18; TEMP 36.8; O2SAT 97
[2021-06-17 15:38] LABS: Troponin-I High Sensitivity 29.2 ng/L (<3.5-17.0)
== END 2021-06-17 16:01 | disposition home or self-care (01) ==
PROVIDERS: Nurse Practitioner Family; Emergency Provider Emergency Medicine; PCP Internal Medicine
DX: I95.1 Orthostatic hypotension (principal); I10 Essential (primary) hypertension; F41.9 Anxiety disorder, unspecified; Z79.899 Other long term (current) drug therapy
CPT/HCPCS: 36415; 71046; 80048; 80076; 82947; 83735; 84484; 85025; 85610; 93005; 96360; 99284

== ENCOUNTER → 2021-10-22 13:13 | Outpatient (BNVA) | payer MEDICARE, SELFPAY | PROVIDERS: PCP Internal Medicine; Referring Provider Internal Medicine; Visit Provider Physician Assistant | DX: Z12.11 Encounter for screening for malignant neoplasm of colon (principal) | CPT/HCPCS: 99212 ==

== ENCOUNTER 2023-04-12 17:37 | Emergency (ER) | payer MEDICARE, SELFPAY ==
--- NOTE | ~2023-04-12 | US_ITS ---
EXAMINATION: US PELVIS CLINICAL INFORMATION: Postmenopausal bleeding evaluate for mass. COMPARISON: CT scan of the abdomen and pelvis July 2016. TECHNIQUE: Ultrasound of the pelvis is performed using both transabdominal and transvaginal transducers along with Doppler. Transvaginal imaging is performed due to inadequate visualization transabdominally. FINDINGS: Uterus: The uterus is anteverted and measures 6.4 x 2.5 x 4.5 cm. The double wall endometrial thickness is 5 mm The uterus is smooth in contour and has normal myometrial echogenicity. No visible fibroid. Adnexa: Ovaries could not be visualized. No fluid in the cul-de-sac. US/US pelvic and transvaginal IMPRESSION: 1. Normal uterus. No mass detected 2. Ovaries could not be visualized.
[2023-04-12 19:00] VITALS: BP 148/91; PULSE 62; RESP 18; TEMP 36.6; O2SAT 95; BMI 33.9
--- NOTE | 2023-04-12 19:08 | ED.FEMALEGU ---
HPI - Female Genitourinary General Chief complaint: Urogenital-Female Stated complaint: Vaginal bleeding Time Seen by Provider: 04/12/23 21:20 Source: patient, family and RN notes reviewed Mode of arrival: ambulatory Limitations: no limitations History of Present Illness HPI Narrative: This is a 73-year-old female, the past medical history of exam presenting to the emergency department with complaints of vaginal discharge x4 days. She also reports redness, itchy and painful vaginal area for the last 2 weeks. Patient reports that she has had some dysuria. No hematuria, urinary frequency or urgency. She denies any vaginal bleeding. Denies any fevers, chills, chest pain, shortness of breath, abdominal pain, nausea, vomiting or diarrhea. Denies history of similar symptoms in the past. She is not sexually active. No other complaints or concerns at this time. MD elicited complaint: vaginal discharge Onset (ago): day(s) Location of symptoms: external genitalia Severity: moderate Consistency: constant Vaginal discharge: white Vaginal bleeding: none Urinary symptoms: Dysuria Exacerbating factors: urination, movement, bathing and palpation Relieving factors: none Associated symptoms: denies other symptoms Treatment prior to arrival: none Sexual activity: No Patient : No Related Data Home Medications Medication Instructions Recorded Confirmed clonazepam 0.5 mg tablet 1 tab PO BID PRN anxiety 11/14/20 01/24/21 lisinopril 10 mg tablet 1 tab PO DAILY 11/14/20 01/24/21 trazodone 50 mg tablet 1 tab PO BEDTIME 11/14/20 01/24/21 cholecalciferol (vitamin D3) 25 25 mcg PO DAILY 01/24/21 01/24/21 mcg (1,000 unit) capsule vitamin B complex (B 1 tab PO DAILY 01/24/21 01/24/21 Complex-Vitamin B12 tablet) Previous Rx's Medication Instructions Recorded bisacodyl 5 mg tablet,delayed 10 mg (2 x 5 mg) PO ONCE 10/22/21 release (Dulcolax (bisacodyl)) colonoscopy prep 1 day #2 tabs polyethylene glycol 3350 17 238 g PO ONCE 1 day #238 grams 10/22/21 gram/dose oral powder (Miralax) benzocaine 5 %-benzalkonium 1 appl topical BID PRN vaginal 04/13/23 chloride 0.13 %-aloe-vit E topical irritation 7 days #28 grams cream fluconazole 150 mg tablet 150 mg PO Q3D 2 doses #2 tabs 04/13/23 Allergies Allergy/AdvReac Type Severity Reaction Status Date / Time No Known Allergies Allergy Verified 04/12/23 18:59 [No Known Allergies*] Review of Systems Review of Systems: Yes all other systems are reviewed and are negative Constitutional: Constitutional: Reports as per [facility] Past Medical History Medical History (Updated 04/13/23 @ 00:54 by REGINO Soto) Dalila vaginitis Anxiety Family History Family History Father Heart problem Mother Heart problem Social History Social History (Updated 10/22/21 @ 13:37 by Elizabeth Mooney PA-C) Household Members Other:: alone Alcohol intake: never Smoked in Last 30 Days: No Use of substances other than those prescribed or required for medical reasons: No Advance Directives: No Advance Directives Information Provided: No service: No Current occupational status: unemployed and retired Physical Exam Vital Signs: Vital Signs: Last Vital Signs Temp 98.6 F 04/12/23 23:39 Pulse 60 04/12/23 23:39 Resp 16 04/12/23 23:39 BP 179/85 H 04/12/23 23:39 Pulse Ox 94 04/12/23 23:39 O2 Del Method Room Air 04/12/23 23:39 BMI result Body Mass Index 33.9 Const: General: cooperative, comfortable and no acute distress Orientation/consciousness: patient oriented x3 Limitations: no limitations HEENT: Head: Yes normal to inspection, Yes normocephalic and Yes atraumatic Ears: hearing grossly normal bilaterally General nose exam: Normal external nose present Face and sinus: Yes normal facial exam Mouth: Normal oral and palatal mucosa present, oropharynx normal and moist mucous membranes Throat: Yes posterior oropharynx normal Eyes: General: appearance normal, both eyes and all related structures Eyelids: Yes eyelids normal Conjunctivae: conjunctivae normal Sclerae: sclerae normal Pupils: Equal, round and reactive pupils present EOM: EOMs intact bilaterally Neck: Neck: Yes normal visual inspection, Yes full ROM and Yes no lymphadenopathy Lymphatic: no lymphadenopathy noted Chest: Chest palpation & inspection: normal inspection of the chest Resp: Effort & Inspection: normal respiratory effort and able to speak in complete sentences Auscultation: clear to auscultation bilaterally, no crackles, no rales, no rhonchi and no wheezes Cardio: Rate: regular rate Rhythm: regular rhythm Heart sounds: S1 normal heart sound present and S2 normal heart sound present GI: Other: Abdomen is soft, nontender, nondistended. Inspection: Yes normal to inspection : Other: examination performed with facilities operations technician and nurse at bedside. Patient has beefy red external genitalia, with weight discharge coming from the vaginal vault. Tender to palpation. Skin: General skin exam: no rashes or lesions noted Trauma: no lacerations or abrasions Wounds: no wounds Neuro: General: patient oriented x3 and moves all extremities Cranial nerves: Yes Equal, round and reactive pupils present Extrem: General: Yes normal to inspection Right upper extremity: normal to inspection Left upper extremity: normal to inspection Right lower extremity: normal to inspection Left lower extremity: normal to inspection Course Course Course Narrative: Patient complains of blood on toilet paper after she urinates, but no blood in the toilet and is not sure if it is vaginal or from her urine She also complains of some mild dysuria no back pain no flank pain no fever no vomiting Mild suprapubic tenderness on exam This rapid medical exam and triage pending full evaluation by provider in the emergency department with full history and physical review of results and disposition Medications Administered Discontinued Medications Generic Name Dose Route Start Last Admin Trade Name Freq PRN Reason Stop Dose Admin Fluconazole 150 mg 04/13/23 01:30 04/13/23 01:33 Fluconazole 100 Mg Tablet PO 04/13/23 01:31 150 mg ONCE ONE Administration Medical Decision Making Medical Decision Making [facility] Narrative: 73-year-old female presenting to the emergency department for evaluation of vaginal discharge and vaginal itching and pain x2 weeks. On arrival, vital signs within normal limits. In triage, labs were ordered as well as ultrasound. Ultrasound was unremarkable, labs unremarkable. Pelvic examination was performed by me with line maintenance supervisor present at all times, examination findings consistent with yeast infection. Patient given 1st dose of Diflucan, also given paper prescription for Diflucan and topical vaginal cream. Advised to follow-up with primary care physician as needed. Patient understands and agrees with plan. Given return precautions. Stable for discharge Differential Diagnosis Differential Diagnoses: The differential diagnosis associated with the presentation includes Tish, bacterial vaginosis, pelvic pain, ovarian cyst Lab Data MDM Lab Attestation statement: I reviewed the patient's lab results. No leukocytosis, stable H&H urine does not appear to be infected 04/12/23 19:23 04/12/23 19:23 Labs: Lab Results 04/12/23 04/12/23 Range/Units 19:23 21:36 WBC 6.2 (4.8-10.8) X10*3/uL RBC 4.13 L D (4.20-5.50) X10*6/uL Hgb 13.4 D (12.0-16.0) g/dl Hct 39.0 (37.0-47.0) % MCV 94.4 (80.0-98.0) fL MCH 32.4 (27.0-33.0) pg MCHC 34.4 (31.0-35.0) g/dl RDW 12.6 (11.0-16.0) % Plt Count 141 L (160-400) X10*3/uL MPV 10.3 (9.4-12.3) fL Immature Gran % (Auto) 0.2 (0.0-0.4) % Neut % (Auto) 47.7 (45-73) % Lymph % (Auto) 38.5 (20-40) % [place] % (Auto) 9.4 (2-11) % Eos % (Auto) 3.4 (0-4) % Baso % (Auto) 0.8 (0-2) % Lymph # (Auto) 2.4 (1.2-4.9) X10*3/uL [place] # (Auto) 0.6 (0.1-1.2) X10*3/uL Eos # (Auto) 0.2 (0.0-0.4) X10*3/uL Baso # (Auto) 0.1 (0.0-0.2) X10*3/uL Abs Immat Gran (auto) 0.01 (0.00-0.03) X10*3/uL Absolute Neuts (auto) 2.9 (2.0-8.3) x10*3/uL Absolute Nucleated RBC 0.000 (0.0-0.012) X10*3/uL Nucleated RBC % (auto) 0.0 (0.0-0.2) /100WBC Sodium 141 (135-145) mmol/L Potassium 4.2 (3.3-5.1) mmol/L Chloride 108 (96-108) mmol/L Carbon Dioxide 25 (22-29) mmol/L Anion Gap 12 (12-20) BUN 5 L (9-16) mg/dL Creatinine 0.92 (0.5-1.4) mg/dL Estim Creat Clear Calc 58.1 Estimated GFR 60 Random Glucose 98 (60-115) mg/dL Calcium 9.7 D (8.4-10.2) mg/dL Urine Color Yellow Urine Appearance Clear Urine pH 6.0 (5.0-9.0) Ur Specific [place] <= 1.005 (1.005-1.025) Urine Protein Negative (Neg-Trace) mg/dL Urine Glucose (UA) Negative (Negative) mg/dL Urine Ketones Negative (Negative) mg/dL Urine Blood Negative (Negative) Urine Nitrite Negative (Negative) Ur Leukocyte Esterase Trace H (Negative) Urine RBC 0-2 (0-2) /HPF Urine WBC 0-5 (0-5) /HPF Ur Squamous Epith Cells 0-2 (0-2) /HPF Urine Bacteria Trace (None Seen) Hyaline Casts 0-2 (0-2) /LPF Radiology Impression Discussion of test interpretation with radiology: I have reviewed the radiologist's reading. Radiologist Impression: EXAMINATION: US PELVIS CLINICAL INFORMATION: Postmenopausal bleeding evaluate for mass. COMPARISON: CT scan of the abdomen and pelvis July 2016. TECHNIQUE: Ultrasound of the pelvis is performed using both transabdominal and transvaginal transducers along with Doppler. Transvaginal imaging is performed due to inadequate visualization transabdominally. FINDINGS: Uterus: The uterus is anteverted and measures 6.4 x 2.5 x 4.5 cm. The double wall endometrial thickness is 5 mm The uterus is smooth in contour and has normal myometrial echogenicity. No visible fibroid. Adnexa: Ovaries could not be visualized. No fluid in the cul-de-sac. US/US pelvic and transvaginal IMPRESSION: 1. Normal uterus. No mass detected 2. Ovaries could not be visualized. Dictated By: Keith Olivera MD Discharge Plan Discharge Clinical Impression: Dalila vaginitis Patient Disposition: Home, Self-Care Instructions: Yeast Infection (ED) Additional Instructions: Your urine did not show any evidence of a urinary tract infection. We gave your 1st dose of fluconazole this evening. Do not take 2nd dose of fluconazole for 3 days. And only take as needed. Your exam finding is concerning for a yeast infection. Please take and use prescribed medication as directed. Please follow-up with primary care physician regarding this visit. If any new or worsening symptoms occur, please return for re-evaluation. Parker orina no mostr? ninguna evidencia de karla infecci?n del tracto urinario. Le administramos parker primera dosis de fluconazol esta noche. No tome la segunda dosis de fluconazol anay 3 d?as. Y solo t?poli seg?n sea necesario. El resultado de parker examen es preocupante de karla candidiasis. [place] y utilice los medicamentos recetados seg?n las indicaciones. Monik un seguimiento con parker m?dico de atenci?n primaria con respecto a esta visita. Si se presenta alg?n s?ntoma nuevo o que empeora, regrese para karla nueva evaluaci?n. Prescriptions: New wlrudksquc-foarxfpbdvzr-wvyu-E 5-0.13 % cream 1 appl topical BID PRN (Reason: vaginal irritation) 7 Days Qty: 28 0RF fluconazole 150 mg tablet 150 mg PO Q3D Qty: 2 0RF No Action trazodone 50 mg tablet 1 tab PO BEDTIME clonazepam 0.5 mg tablet 1 tab PO BID PRN (Reason: anxiety) lisinopril 10 mg tablet 1 tab PO DAILY cholecalciferol (vitamin D3) 25 mcg (1,000 unit) capsule 25 mcg PO DAILY vitamin B complex [B Complex-Vitamin B12] Tablet 1 tab PO DAILY bisacodyl [Dulcolax (bisacodyl)] 5 mg tablet,delayed release (DR/EC) 10 mg PO ONCE 1 Days Qty: 2 0RF Rx Instructions: Take 2 tablets by mouth at 12:00pm the day before your procedure. polyethylene glycol 3350 [Miralax] 17 gram/dose powder 238 g PO ONCE 1 Days Qty: 238 0RF Rx Instructions: Take as directed by mouth the day before your procedure. Interventions: ED Discharge Assessment Last Done: 04/13/23 02:09 Discharge Date/Time: 04/13/23 01:55
[2023-04-12 19:27] LABS: MANUAL DIFF FLAG NO
[2023-04-12 19:28] LABS: Basophils Absolute Auto 0.1 X10*3/uL (0.0-0.2); Basophils Percent Auto 0.8 % (0-2); Eosinophils Absolute Auto 0.2 X10*3/uL (0.0-0.4); Eosinophils Percent Auto 3.4 % (0-4); Hemoglobin 13.4 g/dl (12.0-16.0); Imm Gran Abs Auto 0.01 X10*3/uL (0.00-0.03); Imm Gran Pct Auto 0.2 % (0.0-0.4); Lymphocytes Absolute Auto 2.4 X10*3/uL (1.2-4.9); Lymphocytes Percent Auto 38.5 % (20-40); Mean Corpuscular HGB Conc 34.4 g/dl (31.0-35.0); Mean Corpuscular Hemoglobin 32.4 pg (27.0-33.0); Mean Corpuscular Volume 94.4 fL (80.0-98.0); Mean Platelet Volume 10.3 fL (9.4-12.3); Monocytes Absolute Auto 0.6 X10*3/uL (0.1-1.2); Monocytes Percent Auto 9.4 % (2-11); Neutrophils Absolute Auto 2.9 x10*3/uL (2.0-8.3); Neutrophils Percent Auto 47.7 % (45-73); Platelet Count 141 X10*3/uL (160-400); Red Blood Count 4.13 X10*6/uL (4.20-5.50); Red Cell Distribution Width 12.6 % (11.0-16.0); White Blood Count 6.2 X10*3/uL (4.8-10.8)
[2023-04-12 19:49] LABS: Anion Gap 12 (12-20); Blood Urea Nitrogen 5 mg/dL (9-16); Calcium 9.7 mg/dL (8.4-10.2); Carbon Dioxide 25 mmol/L (22-29); Chloride 108 mmol/L (96-108); Creatinine Clr Calc Pharmacy 58.1; Estimated Glomerular Filt Rate 60; Glucose Random 98 mg/dL (60-115); Potassium 4.2 mmol/L (3.3-5.1); Sodium 141 mmol/L (135-145)
[2023-04-12 21:00] VITALS: BP 166/85; PULSE 60; RESP 16; TEMP 36.7; O2SAT 94
[2023-04-12 21:51] LABS: Appearance Urine Clear; Color Urine Yellow; Glucose Urine UA Negative (Negative); Leukocyte Esterase Urine Trace (Negative); Nitrite Urine Negative (Negative); Specific Gravity - Urine <= 1.005 (1.005-1.025); UMIC TRIGGER UACC YES; Urine Blood Negative (Negative); Urine Ketones Negative (Negative); Urine Protein Negative (Neg-Trace)
[2023-04-12 22:00] VITALS: BP 172/81; PULSE 61; RESP 16; TEMP 37; O2SAT 94
[2023-04-12 22:04] LABS: Bacteria Urine Trace (None Seen); Hyaline Casts Urine 0-2 /LPF (0-2); RBC Urine 0-2 /HPF (0-2); Squamous Epithelial Cell Urine 0-2 /HPF (0-2); WBC Urine 0-5 /HPF (0-5)
[2023-04-12 23:39] VITALS: BP 179/85; PULSE 60; RESP 16; TEMP 37; O2SAT 94
--- NOTE | 2023-04-13 00:58 | MHC.EDTECH ---
Assisted provider with a pelvic exam, cultures were obtained and sent to lab. Patient tolerated procedure well and is awaiting to be discharged at this time
[2023-04-13] MEDS: Fluconazole 100 MG TABLET 150 MG PO (01:33)
--- NOTE | 2023-04-13 01:44 | PC.NURSE ---
This RN attempted to call pt's son for transport at phone number provided [phone]. Pt confirmed that was her sons number. This RN keeps getting a busy signal.
[2023-04-14 12:22] LABS: BV Int Neg Control Negative (Negative); BV Int Pos Control Positive (Positive)
== END 2023-04-13 01:55 | disposition home or self-care (01) ==
PROVIDERS: Physician Assistant Medical; Emergency Provider Emergency Medicine; PCP Internal Medicine
DX: B37.31 Acute candidiasis of vulva and vagina (principal)
CPT/HCPCS: 36415; 76830; 76856; 80048; 81001; 85025; 87480; 87510; 87660; 99284

== ENCOUNTER 2023-11-25 12:36 | Outpatient (REF) | payer MEDICARE, SELFPAY ==
[2023-11-25 13:14] LABS: MANUAL DIFF FLAG NO
[2023-11-25 13:31] LABS: Basophils Absolute Auto 0.1 X10*3/uL (0.0-0.2); Basophils Percent Auto 1.4 % (0-2); Eosinophils Absolute Auto 0.2 X10*3/uL (0.0-0.4); Hemoglobin 12.8 g/dl (12.0-16.0); Lymphocytes Absolute Auto 2.1 X10*3/uL (1.2-4.9); Lymphocytes Percent Auto 41.2 % (20-40); Mean Corpuscular Hemoglobin 31.8 pg (27.0-33.0); Mean Corpuscular Volume 99.3 fL (80.0-98.0); Mean Platelet Volume 12.4 fL (9.4-12.3); Monocytes Absolute Auto 0.4 X10*3/uL (0.1-1.2); Monocytes Percent Auto 7.8 % (2-11); Neutrophils Absolute Auto 2.4 x10*3/uL (2.0-8.3); Neutrophils Percent Auto 46.6 % (45-73); Platelet Count 147 X10*3/uL (160-400); Red Blood Count 4.03 X10*6/uL (4.20-5.50); Red Cell Distribution Width 12.8 % (11.0-16.0)
[2023-11-25 13:46] LABS: Estimated Average Glucose 108 mg/dL; Hemoglobin A1c % 5.4 % (<6.0)
[2023-11-25 14:03] LABS: Alanine Aminotransferase 13 U/L (0-31); Albumin Level 3.3 g/dL (3.5-5.0); Alkaline Phosphatase 91 U/L (39-117); Anion Gap 13 (12-20); Aspartate Amino Transferase 24 U/L (5-31); Bilirubin Direct 0.2 mg/dL (0.0-0.5); Bilirubin Total 0.8 mg/dL (0.0-1.0); Blood Urea Nitrogen 5 mg/dL (9-16); Calcium 9.1 mg/dL (8.4-10.2); Carbon Dioxide 29 mmol/L (22-29); Chloride 106 mmol/L (96-108); Cholesterol 220 mg/dL (<200); Estimated Glomerular Filt Rate > 60; Glucose Random 109 mg/dL (60-115); HDL Cholesterol 34 mg/dL (>40); LDL Cholesterol Calculated 155 mg/dL (<100); Potassium 3.8 mmol/L (3.3-5.1); Sodium 144 mmol/L (135-145); Total Protein 6.9 g/dL (6.5-8.0); Triglycerides 158 mg/dL (<150)
[2023-11-25 14:22] LABS: TSH reflex Free T4 0.66 uIU/mL (0.32-4.0)
== END 2023-11-25 12:37 | disposition home or self-care (01) ==
LOC: HO.HHCL 12:36
PROVIDERS: Visit Provider Internal Medicine
DX: I10 Essential (primary) hypertension (principal)
CPT/HCPCS: 36415; 80048; 80061; 80076; 83036; 84443; 85025

== ENCOUNTER 2024-02-12 14:28 | Outpatient (REF) | payer OTHER, SELFPAY | END 2024-02-12 14:29 | disposition home or self-care (01) | LOC: HO.MAMMO 14:28 | PROVIDERS: Visit Provider Internal Medicine | DX: Z12.31 Encounter for screening mammogram for malignant neoplasm of breast (principal) | CPT/HCPCS: 77063; 77067 ==

== ENCOUNTER → 2024-02-12 14:45 | Outpatient (BNV) | payer OTHER, SELFPAY | PROVIDERS: Visit Provider Radiology Diagnostic Radiology | DX: Z12.31 Encounter for screening mammogram for malignant neoplasm of breast (principal) | CPT/HCPCS: 77063; 77067 ==

== ENCOUNTER 2025-04-05 14:04 | Outpatient (REF) | payer OTHER, SELFPAY ==
--- OUTSIDE RECORDS SUMMARY | 2025-04-05 15:19 | XMS_ITS | Encounter Summary ---
Author Organization [employer] Address [address] [place] [address] Care Team Providers Care Connie Cleaner Name Role Phone Divina Lo MD Primary Care Provide r Robert Mendoza Unavailable Unavailable Reason for Visit * Reason Onset Date Comments Med Refill 01/09/2024 Encounter Details Date Type Department Care Team ([facility] st Contact Info) Description 01/09/2024 Telephone [facility] [address] [place] [address] Divina Lo MD [address] [place] [address] Med Refill Social History Tobacco Use Types Packs/Day Years Used Date Smoking Tobacco: Never Smokeless Tobacco: Never Alcohol Use Standard Drinks/Week Comments Never 0 (1 standard drink = 0.6 oz pur e alcohol) Depression Answer Date Recorded Patient Health Questionnaire-9 Score 0 01/05/2024 Patient Health Questionnaire-9 Score 0 01/05/2024 Last PHQ-9: Questionnaire Data Not on file 0 01/05/2024 Housing Stability Answer Date Recorded What is your housing situation today? I have manuela sing 10/20/[address] you li ve. Do you have problems with any of the following? None of the above 10/20/2023 Food Insecurity Answer Date Recorded Within the past 12 months, y ou worried that your food would run out before you got money to buy more: Never True 10/20/2023 Within the past 12 months,th e food you bought just didn't last and you didn't have enough money to get more: Never True Transportation Answer Date Recorded In the past 12 months, has l ack of transportation kept you from medical appts, meetings, work or from getting things needed for daily living? No 10/20/2023 Utilities Answer Date Recorded In the past 12 months, has t he electric, gas, oil or water company threatened to shut off services in your home? No 10/20/2023 Depression Answer Date Recorded Patient Health Questionnaire-2 Score 0 01/05/2024 Comments Unknown Sex and Gender Information Value Date Recorded Sex Assigned at Female 06/03/2022 10:14 AM EDT Legal Sex Female 10:14 AM EDT Gender Identity Female 06/03/2022 10:14 AM EDT Sexual Orientation Choose not to disclose 2021 10:14 AM EDT documented as of this encounter Miscellaneous Notes * Telephone Encounter - Effie Joshi RN - 01/09/2024 2:55 PM EDT Clonazepam RX has refills available. Spoke with [facility] pharmacy, they are filling it now and will alert her when its ready. * Telephone Encounter - Lynn Martinez - 01/09/2024 2:50 PM EDT TC from pt requesting medication refill. Medications needing refill : clonazePAM (KlonoPIN) 0.5 MG tablet To be sent to: [facility] Pharmacy documented in this encounter Plan of Treatment Upcoming Encounters Date Type Department Care Team (Late st Contact Info) Description 04/29/2025 1:45 PM EDT Office Visit [facility] [address] [place] [address] Divina Lo MD [address] [place] [address] documented as of this encounter Visit Diagnoses Diagnosis Anxious depression documented in this encounter Additional Health Concerns Assessment Noted Time PHQ-9 Depression Total Score: 0 01/05/20 24 1:44 PM EDT documented as of this encounter Care Teams Connie Cleaner Relationship Specialty Start Date End Date Divina Lo MD [address] [place] [address] PCP - General Family Medicine 04/15/18 Robert Mendoza FNP [address] [place] [address] Nurse Practitioner Family Medicine 07/04/23 documented as of this encounter
--- OUTSIDE RECORDS SUMMARY | 2025-04-05 15:19 | XMS_ITS | Encounter Summary ---
Author Organization [employer] Address [address] [place] [address] Care Team Providers Care Subassembly Supervisor Name Role Phone Divina Lo MD Primary Care Provide r Robert Mendoza Unavailable Unavailable Reason for Visit * Reason Onset Date Comments Nurse Triage 09/21/2024 Encounter Details Date Type Department Care Team ([facility] st Contact Info) Description 09/21/2024 Telephone [facility]INE [address] [place] [address] Divina Lo MD [address] [place], [place] [phone] Nurse Triage Social History Tobacco Use Types Packs/Day Years [...] encounter Miscellaneous Notes * Telephone Encounter - Domonique Carrera RN - 09/21/2024 4:43 PM EST Sent message to PCP on [employer] as well as in [facility]. PCP answered my [employer] request and she states Yes,I will fill pt. Clonazepam and she can pick it up at Pharmacy. I called pt. And told her in simpleterms that PCP said yes to fill RX for Clonazepam and she can pick it up tomorrow morning at [facility]. Pt. States understanding. * Telephone Encounter - Domonique Carrera RN - 09/21/2024 4:06 PM EST Called pt. Pt. Gives permission to speak with pedro luis Jj. Pt. Pedro Luis states that pt. Has not been sleeping well for a few weeks and this has increased her Anxiety. Pt. Feels anxious at present and isshaky. Pt is requesting refill of Clonazepam so that she can go to [facility] and start getting restful sleep again . Pt states her lack of sleep is what is increasing her Anxiety. Pt denies anyself harm or Suicidal thoughts. Please advise as to whether a refill will be submitted for pt. Clonazepam. I did make pt. Pedro Luis aware that pt. Has no showed to 2 previous appts with PCP. Please advise. Pt. Is looking for a call back either way. * Telephone Encounter - Jay Del Valle - 09/21/2024 3:56 PM EST Symptoms: Sleeping Difficulty, Anxiety or Panic Attack Outcome: Schedule an appointment to be seen within 24 hours Reason: Caller denied all higher acuity questions Please contact pt at [phone]. (Denied Nurse Staff [facility] with Niece.) documented in this encounter Plan of Treatment Upcoming Encounters Date Type Department Care Team (Late st Contact Info) Description 04/29/2025 1:45 PM EDT Office Visit [facility] [address] [place] [phone] Divina Lo MD [address] [place] [phone] documented as of this encounter Visit Diagnoses Diagnosis Anxious depression documented in this encounter Additional Health Concerns Assessment Noted Time PHQ-9 Depression Total Score: 0 01/05/20 24 1:44 PM EDT documented as of this encounter Care Teams Subassembly Supervisor Relationship Specialty Start Date End Date Divina Lo MD [address] [place] [id number] PCP - General Family Medicine 04/15/18 Robert Mendoza FNP [address] [place] [phone] Nurse Practitioner Family Medicine 07/04/23 documented as of this encounter
--- OUTSIDE RECORDS SUMMARY | 2025-04-05 15:19 | XMS_ITS | Encounter Summary ---
Author Organization [employer] Address [address] [place] [address] [address] [place] [address] Care Team Providers Care Irrigation Equipment Installer Name Role Phone Divina Lo MD Primary Care Provide r Robert Mendoza Unavailable Unavailable Encounter Details Date Type Department Care Team (Late Contact Info) Description 07/01/[address] [facility] [address] [place] [address] [phone] Bree Saez Social History Tobacco Use Types Packs/Day Years Used Date Smoking Tobacco: Never Assessed Depression Answer Date Recorded Patient Health Questionnaire-9 Score 2 02/18/2023 Depression Answer Date Recorded Patient Health Questionnaire-2 Score 0 02/18/2023 Comments Unknown Sex and Gender Information Value Date Recorded Sex Assigned at Female 06/03/2022 10:14 AM EDT Legal Sex Female 10:14 AM EDT Gender Identity Female 06/03/2022 10:14 AM EDT Sexual Orientation Choose not to disclose 2021 10:14 AM EDT documented as of this encounter Plan of Treatment Upcoming Encounters Date Type Department Care Team (Late Contact Info) Description 04/29/2025 1:45 PM EDT Office Visit [facility] [address] [place] [address] [phone] Divina Lo MD [address] [place], [place] [phone] documented as of this encounter Visit Diagnoses Not on filedocumented in this encounter Additional Health Concerns Assessment Noted Time PHQ-9 Depression Total Score: 2 02/19/20 23 12:49 PM EDT documented as of this encounter Care Teams Irrigation Equipment Installer Relationship Specialty Start Date End Date Divina Lo MD [address] [place] [address] PCP - General Family Medicine 04/15/18 Robert Mendoza FNP [address] [place] [address] Nurse Practitioner Family Medicine 07/04/23 documented as of this encounter
--- OUTSIDE RECORDS SUMMARY | 2025-04-05 15:19 | XMS_ITS | Clinical Summary ---
Author Organization [employer] Address [address] [facility] 7t [place] [address] Care Team Providers Care Manager Workers Compensation Name Role Phone Divina Lo MD Primary Care Provide r Robert Mendoza Unavailable Unavailable Allergies No known active allergies Medications atorvastatin (Lipitor) 40 MG tabletIndication s:Essential hypertension Take 1 tablet (40 mg) by mouth Once per day. 30 tablet 11 03/05/20 24 Active Blood Pressure Monitoring (Blood Pressure Cuff) miscIndications: Essential hypertension 1 each Once daily. 1 each 03/05/20 24 Active clonazePAM (KlonoPIN) 0.5 MG tabletIndication s:Anxious depression Take 1 tablet (0.5 mg) by mouth if needed at bedtime for anxiety for up to 7 days. 7 tablet 03/31/20 25 025 Active clonazePAM (KlonoPIN) 0.5 MG tabletIndication s:Anxious depression Take 1 tablet (0.5 mg) by mouth if needed at bedtime for anxiety for up to 7 days. 7 tablet 03/04/20 25 025 Discontinued(Re order (will not trigger notification to Pharmacy)) clonazePAM (KlonoPIN) 0.5 MG tabletIndication s:Anxious depression Take 1 tablet (0.5 mg) by mouth if needed at bedtime for anxiety for up to 7 days. 7 tablet 03/18/20 25 025 Discontinued(Re order (will not trigger notification to Pharmacy)) Active Problems Problem Noted Date Diagnosed Date Long-term current use of benzodiazepine 02/08/20 25 Bradycardia 03/05/2024 Colon cancer screening declined 03/05/2024 Encounter for screening mamm ogram for malignant neoplasm of breast 11/11/2023 Colon cancer screening 11/11/2023 Overweight (BMI 25.0-29.9) 11/11/2023 Assessment & Plan (11/11/2023 4:59 PM EDT): I advise weight reduction to see if this helps with the problem with her breast Stage 3 chronic kidney disease 10/27/2023 Syncope 10/27/2023 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 Doing very well. Taking Clonazepam 0.5 mg at bedtime only. Since this provider will be retiring, patient is now referred back to her PCP for further medication management. Any issues or concerns, call [facility]. All her questions were answered and I have wished her well. She agrees with the plan. Assessment & Plan (11/11/2023 4:56 PM EDT): Continue to follow with therapist C/w clonazepam 0.5mg at night only Assessment & Plan (10/14/2023 12:13 PM EDT): With insomnia. Doing very well. Has not needed Trazodone 50 mg at bedtime will remove from her med list now. Taking Clonazepam 0.5 mg at bedtime only. On 07/15/2023 pt was informed that I would be retiring, but we would arrange for continuity of care. Meanwhile, F/U 2-3 months. She agrees with the plan. Assessment & Plan (07/15/2023 12:13 PM EST): With insomnia. Doing very well. Has not needed Trazodone 50 mg at bedtime, but prefers to continue to have it available. Taking Clonazepam 0.5 mg at bedtime only. Today 07/15/2023 pt was informed that I would be retiring in approx 1/2 year, but we would arrange for continuity of care. F/U 3 months. She agrees with the plan. Assessment & Plan (02/18/2023 12:59 PM EDT): With insomnia. Doing very well. Continue current plan with Trazdone 50 mg at bedtime and Clonazepam 0.5 mg BID prn. F/U 3 months. She agrees with the plan. Assessment & Plan (11/28/2022 10:17 AM EDT): With insomnia. Doing very well. Continue current plan with Trazdone 50 mg at bedtime and Clonazepam 0.5 mg BID prn. F/U 3 months. She agrees with the plan. Assessment & Plan (09/02/2022 12:21 PM EST): With insomnia. Continue current plan. F/U 2-3 months. She agrees with the plan. Hypertensive disorder 02/17/2018 Benzodiazepine dependence, continuous 06/23/2017 Gastroesophageal reflux disease without esophagi tis 06/23/2017 Osteoarthritis of knee 06/23/2017 Vitamin D deficiency 06/23/2017 Whole body pain 06/23/2017 Mood disorder 04/16/2017 Non-cardiac chest pain 10/11/2016 Seasonal allergic rhinitis 10/11/2016 Essential hypertension 03/14/2016 Assessment & Plan (03/05/2024 3:48 PM EDT): Today blood pressure elevated I advise low Na diet and weight reduction I will prescribe BP cuff and ask her to log her BP if still elevated I will start patient on losartan 25mg daily Assessment & Plan (11/11/2023 4:55 PM EDT): -Patient is currently not on medications I advise the following: - Aerobic exercise to reduce BP. Initial goal of 30 min walk 3-5x/week. Increase as tolerated. - low-sodium diet (goal: <2g/day) and heart healthy diet such as DASH to reduce BP and prevent ASCVD. - Home BP monitoring 1-2 x day with goal of <140/90. - Seek immediate medical attention for chest pain, palpitations, SOB, syncope, or sudden changes in mental status. Encounters Date Type Department Care Team Description 03/31/[address] [facility] [address] [place] [address] Divina Lo MD Anxious depression 03/31/[address] [facility] [address] [place] [phone] Divina Lo MD Anxious depression 03/31/[address] [facility] [address] [place] [phone] Divina Lo MD Anxious depression 03/18/[address] [facility] [address] [place] [address] [phone] Divina Lo MD Anxious depression 03/03/[address] [facility] [address] [place] [phone] Divina Lo MD Anxious depression 02/21/[address] [facility] [address] [place] [address] [phone] Divina Lo MD No Show 02/18/[address] [facility] [address] [place] [address] [phone] Divina Lo MD Chartprep 02/16/[address] [facility] [address] [place] [phone] Divina Lo MD Med Refill 02/16/[address] [facility] [address] [place] [phone] Divina Lo MD Anxious depression 02/10/2025 Patient Outreach [facility] [address] [place] [phone] Divina Lo MD Pre-visit Planning (SDOH screening completed on 11/26/2024) 02/07/[address] [address] Effie Joshi, GOVIND NCNS PROCESS ENG Initial appt 02/07/[address] [facility] [address] [place] [phone] Effie Joshi RN Recommend PROCESS ENG Tele Tier 2 from Last 3 Months Immunizations Immunization Administration Dates Next Due Influenza High-dose Quadriva lent Preservative Free 07/18/2020 Influenza injectable quadriv alent IIV4 with preservative 06/23/2017,10/27/2015 Influenza injectable quadriv alent preservative free 07/02/2021 Influenza, High Dose Seasona l, Preservative Free 07/06/2019,05/12/2018 Influenza, IIV3, injectable 05/19/2014, 1 Influenza, Split (incl. donta fied surface antigen) 06/01/2013,04/30/2012 Pneumococcal Conjugate PCV 20 11/11/2023 Pneumococcal Polysaccharide PPSV23 07/02,08/31/2017,10/27/2015,09/30 TD (adult), 2 Lf tetanus tox oid, preservative free, adsorbed 03/06/2006 Tdap 12/05/2011 Zoster, live 10/01/2013 Social History Tobacco Use Types Packs/Day Years Used Date Smoking Tobacco: Never Smokeless Tobacco: Never Tobacco Cessation:Counseling Given: Not Answered Alcohol Use Standard Drinks/Week Comments Never 0 (1 standard drink = 0.6 oz pur e alcohol) Depression Answer Date Recorded Patient Health Questionnaire-9 Score 0 01/05/2024 Patient Health Questionnaire-9 Score 0 01/05/2024 Last PHQ-9: Questionnaire Data Not on file 0 01/05/2024 Housing Stability Answer Date Recorded What is your housing situation today? I have manuela fischer 11/26/[address] you li ve. Do you have problems with any of the following? None of the above 11/26/2024 Food Insecurity Answer Date Recorded Within the past 12 months, y ou worried that your food would run out before you got money to buy more: Never True 11/26/2024 Within the past 12 months,th e food you bought just didn't last and you didn't have enough money to get more: Never True Transportation Answer Date Recorded In the past 12 months, has l ack of transportation kept you from medical appts, meetings, work or from getting things needed for daily living? No 11/26/2024 Utilities Answer Date Recorded In the past 12 months, has t he electric, gas, oil or water company threatened to shut off services in your home? No 11/26/2024 Depression Answer Date Recorded Patient Health Questionnaire-2 Score 0 01/05/2024 Internet Access Answer Date Recorded Internet Access Q1 No 11/26/2024 Internet Access Q2 I cannot afford it 11/26/2024 Comments Unknown Sex and Gender Information Value Date Recorded Sex Assigned at Female 06/03/2022 10:14 AM EDT Legal Sex Female 10:14 AM EDT Gender Identity Female 06/03/2022 10:14 AM EDT Sexual Orientation Choose not to disclose 2021 10:14 AM EDT Last Filed Vital Signs Vital Sign Reading Time Taken Comments Blood Pressure 157/84 03/05/2024 3:11 PM EDT Pulse 65 03/05/2024 3:44 PM EDT Temperature 37.2 C (99 F) 03/05/2024 3:11 PM EDT Respiratory Rate 20 03/05/2024 3:11 PM EDT Oxygen Saturation 97% 03/05/2024 3:11 PM EDT Inhaled Oxygen Concentration - - Weight 67.1 kg (148 lb) 03/05/2024 3:11 PM EDT Height 151.1 cm (4' 11.5 ) 03/05/2024 3:11 PM ED T Body Mass Index 29.39 03/05/2024 3:11 PM EDT Plan of Treatment Upcoming Encounters Date Type Department Care Team (Late st Contact Info) Description 04/29/2025 1:45 PM EDT Office Visit [facility] [address] [place] [address] Divina Lo MD [address] [place] [address] Health Maintenance Due Date Last Done Comments CT Colonography 1949 Colonoscopy 1949 Colorectal Cancer Screening 1949 FIT DNA/Cologuard 1949 FIT 1949 FOBT 1949 Sigmoidoscopy 1949 Alcohol/Substance Use Screening 1961 Hepatitis C Screening 1967 Zoster Vaccines (2 of 3) 11/26/2013 10/01/2013 DTaP/Tdap/Td Vaccines (2 - Td or Tdap) 12/04/2021 12/05/2011, 03/06/2006 COVID-19 Vaccine ( season) 2024 11/17/2020, 10/20/2020 RSV Patients and Patients Aged 60 years or older (1 - 1-dose 75+ series) 2024 Depression Screening 01/04/2025 01/05/2024, 01/05/20 Influenza Vaccine (#1) 2025 , 07/18/2020, 07/06/2019, Additional history exists SDOH Screening 11/26/2025 11/26/2024 Tobacco Screening 11/26/2025 11/26/2024 Lipid Panel 11/24/2028 11/25/2023 Pneumococcal Vaccine: 50+ Years Completed 11/11/2023, 07/02/2021, 08/31/2017, Additional history exists HIB Vaccines Aged Out No longer eligi ble based on patient's age to complete this topic HPV Vaccines Aged Out No longer eligi ble based on patient's age to complete this topic Hepatitis A Vaccines Aged Out No long er eligible based on patient's age to complete this topic Hepatitis B Vaccines Aged Out No long er eligible based on patient's age to complete this topic IPV Vaccines Aged Out No longer eligi ble based on patient's age to complete this topic Meningococcal B Vaccine Aged Out No l onger eligible based on patient's age to complete this topic Meningococcal Vaccine Aged Out No eddie enrique eligible based on patient's age to complete this topic RSV under 20 months Aged Out No longe r eligible based on patient's age to complete this topic Rotavirus Vaccines Aged Out No longer eligible based on patient's age to complete this topic Procedures Procedure Name Priority Date/Time Associated Diagnosis Comments LIPID PANEL, STANDARD Routine 11/25/2023 12:37 PM EDT Essential hypertension from Last 3 Months or Most Recently Relevant to Health Maintenance Results * (ABNORMAL) Lipid Panel, Standard (11/25/2023 12:37 PM EDT) Triglycerides 158(H) <150 mg/dL [facility] Comment:Desirable Triglyceri de: less than 150 mg/dLBorderline High Triglyceride 150-199 mg/dLHigh Triglyceride: 200-499 mg/dLVery High Triglyceride: greater than or equal to 5OO mg/dL Cholesterol 220(H) <200 mg/dL [facility] Comment:Desirable Cholestero l: less than 200 mg/dLBorderline High Cholesterol: 200-239 mg/dLHigh Cholesterol: greater than 239 mg/dL LDL Cholesterol Calculated 155(H) <100 mg/dL [facility] Comment:Desirable LDL: less than 100 mg/dLNear Optimal/Above Optimal LDL: 110- 129 mg/dLBorderline High LDL: 130-159 mg/dLHigh LDL: 160-189 mg/dLVery High LDL: greater than or equal to 190 mg/dL HDL Cholesterol 34(L) >40 mg/dL [facility] Comment:Desirable HDL: great er than 40 mg/dL Note: This HDL assay may give artificially low results in patients with liver disease. Blood Venous blood specimen / Unknown 11/25/2023 12:37 PM EDT 11/25/2023 1:10 PM EDT Divina Hill MD LAB BLOOD ORDERABLES Final Result [facility] [address] [place] [address] [phone] from Last 3 Months or Most Recently Relevant to Health Maintenance Insurance [facility] STANDARD FORMERLY [facility] [employer] (HMO D-SNP) [place] [id number] * Guarantor: Divina Berger Account Type Relation to Patient Date of Phone Billing Address Personal/Family Self [address] [place] [address] * Guarantor: Divina Berger Account Type Relation to Patient Date of Phone Billing Address Personal/Family Self [address] [place] [address] , [place] [address] Care Teams Manager Workers Compensation Relationship Specialty Start Date End Date Divina Lo MD [address] [place] [address] PCP - General Family Medicine 04/15/18 Robert Mendoza FNP [address] [place] [address] Nurse Practitioner Family Medicine 07/04/23
--- OUTSIDE RECORDS SUMMARY | 2025-04-05 15:19 | XMS_ITS | Encounter Summary ---
Author Organization [employer] Address [address] [facility] 7t [place] [address] Care Team Providers Care Physician'S Aide Name Role Phone Diivna Lo MD Primary Care Provide r Robert Mendoza Unavailable Unavailable Reason for Visit * Reason Onset Date Comments Med Refill 03/31/2025 Encounter Details Date Type Department Care Team (Late st Contact Info) Description 03/31/2025 Refill [facility] [address] [place] [address] Divina Lo MD [address] [place], [place] [phone] Anxious depression Social History Tobacco Use Types Packs/Day Years [...] encounter Miscellaneous Notes * Telephone Encounter - Can Saez - 03/31/2025 1:14 PM EDT TC from pt requesting medication refill. Medications needing refill : clonazePAM (KlonoPIN) 0.5 MG tablet To be sent to: [facility] - [place], [place] - [address] [place] [address] documented in this encounter Plan of Treatment Upcoming Encounters Date Type Department Care Team (Late st Contact Info) Description 04/29/2025 1:45 PM EDT Office Visit [facility] [address] [place] [address] Divina Lo MD [address] [place] [address] documented as of this encounter Visit Diagnoses Diagnosis Anxious depression documented in this encounter Additional Health Concerns Assessment Noted Time PHQ-9 Depression Total Score: 0 01/05/20 24 1:44 PM EDT documented as of this encounter Care Teams Physician'S Aide Relationship Specialty Start Date End Date Divina Lo MD [address] [place] [address] PCP - General Family Medicine 04/15/18 Robert Mendoza FNP [address] [place] [address] Nurse Practitioner Family Medicine 07/04/23 documented as of this encounter
--- OUTSIDE RECORDS SUMMARY | 2025-04-05 15:19 | XMS_ITS | Clinical Summary ---
Author Organization [facility] Facility Address [address] [address] Care Team Providers Care Radio Equipment Repairer Name Role Phone Divina Lo MD Primary Care Provide r Allergies No known active allergies Medications albuterol HFA (ProAir HFA) 108 (90 Base) MCG/ACT inhaler Acti ve atorvastatin (LIPITOR) 40 MG tablet Take 1 tablet by mouth every night Active bisacodyl (Dulcolax) 5 MG EC tablet Take 2 tablets by mouth 1 (one) time each day Active cholecalciferol (VITAMIN D-3) 25 MCG (1000 UT) capsule Take 1 capsule by mouth 1 (one) time each day Active clonazePAM (KlonoPIN) 0.5 MG tablet Take 1 tablet by mouth 2 (two) times a day Active traZODone (DESYREL) 50 MG tablet Take 1 tablet by mouth at bed time Active Active Problems Problem Noted Date Diagnosed Date Stage 3a chronic kidney disease 10/20/2020 Social History Tobacco Use Types Packs/Day Years Used Date Smoking Tobacco: Never Smokeless Tobacco: Never Alcohol Use Standard Drinks/Week Comments No 0 (1 standard drink = 0.6 oz pur e alcohol) Comments Unknown Sex and Gender Information Value Date Recorded Sex Assigned at Not on file Legal Sex Female 4:56 PM EST Gender Identity Not on file Sexual Orientation Not on file Last Filed Vital Signs Vital Sign Reading Time Taken Comments Blood Pressure 70/50 10/20/2020 2:17 PM EDT Pulse 65 10/20/2020 2:17 PM EDT Temperature - - Respiratory Rate - - Oxygen Saturation - - Inhaled Oxygen Concentration - - Weight 77.1 kg (170 lb) 10/20/2020 2:17 PM EDT Height - - Body Mass Index - - Plan of Treatment Health Maintenance Due Date Last Done Comments Breast Cancer Screening 1949 Pneumococcal Vaccine: 50+ Ye ars (1 of 2 - PCV) 1968 Colorectal Cancer Screening: Annual FOBT 1998 Colorectal Cancer Screening: Colonoscopy 1998 Colorectal Cancer Screening: Sigmoidoscopy 1998 Influenza Vaccine (#1) 2025 Hepatitis B Vaccine Aged Out No longe r eligible based on patient's age to complete this topic Insurance [facility] ([id number]) [facility] ([id number]) Care Teams Radio Equipment Repairer Relationship Specialty Start Date End Date Divina Lo MD [address] [place] [phone] PCP - General Internal Medicine 10/20/20
--- OUTSIDE RECORDS SUMMARY | 2025-04-05 15:19 | XMS_ITS | Encounter Summary ---
Author Organization [employer] Address [address] [facility] 7t [place] [address] Care Team Providers Care Alterations Manager Name Role Phone Divina Lo MD Primary Care Provide r Robert Mendoza Unavailable Unavailable Reason for Visit * Reason Onset Date Comments Appointment Request 07/30/2024 Encounter Details Date Type Department Care Team ([facility] st Contact Info) Description 07/30/2024 Telephone [facility] [address] [place] [address] Divina Lo MD [address] [place] [address] Appointment Request Social History Tobacco Use Types Packs/Day Years [...] housing situation today? I have manuela fischer 10/20/[address] you li [...] encounter Miscellaneous Notes * Telephone Encounter - Kristine Alvarado - 07/30/2024 1:19 PM EST Tc from pt requesting appointment for physical as pt don't need for program or work pt just wants to be seen . documented in this encounter Plan of Treatment Upcoming Encounters Date Type Department Care Team (Late st Contact Info) Description 04/29/2025 1:45 PM EDT Office Visit [facility] [address] [place] [phone] Divina Lo MD [address] [place] [phone] documented as of this encounter Visit Diagnoses Not on filedocumented in this encounter Additional Health Concerns Assessment Noted Time PHQ-9 Depression Total Score: 0 01/05/20 24 1:44 PM EDT documented as of this encounter Care Teams Alterations Manager Relationship Specialty Start Date End Date Divina Lo MD [address] [place] [phone] PCP - General Family Medicine 04/15/18 Robert Mendoza FNP [address] [place] [phone] Nurse Practitioner Family Medicine 07/04/23 documented as of this encounter
--- OUTSIDE RECORDS SUMMARY | 2025-04-05 15:19 | XMS_ITS | Encounter Summary ---
Author Organization [email or web address] Address [address] [facility] 7t [place] [address] Care Team Providers Care Garment Manufacturing Supervisor Name Role Phone Divina Lo MD Primary Care Provide r Robert Mendoza Unavailable Unavailable Reason for Visit * Reason Comments Med Refill Encounter Details Date Type Department Care Team ([facility] st Contact Info) Description 03/31/[address] [facility] [address] [place], [place] [phone] Divina Lo MD [address] [place], [place] [phone] Anxious depression Social History Tobacco Use Types [...] PM EDT Office Visit [facility] [address] [place] [address] Divina Lo MD [address] [place] [phone] documented as of this encounter Visit Diagnoses Diagnosis Anxious depression documented in this encounter Additional Health Concerns Assessment Noted Time PHQ-9 Depression Total Score: 0 01/05/20 24 1:44 PM EDT documented as of this encounter Care Teams Garment Manufacturing Supervisor Relationship Specialty Start Date End Date Divina Lo MD [address] [place] [phone] PCP - General Family Medicine 04/15/18 Robert Mendoza FNP [address] [place] [phone] Nurse Practitioner Family Medicine 07/04/23 documented as of this encounter
--- OUTSIDE RECORDS SUMMARY | 2025-04-05 15:19 | XMS_ITS | Encounter Summary ---
Author Organization [employer] Address [address] [facility] 7t [place] [address] Care Team Providers Care Manufacturing Production Manager Name Role Phone Divina Lo MD Primary Care Provide r Robert Mendoza Unavailable Unavailable Reason for Visit * Reason Comments Med Refill Encounter Details Date Type Department Care Team ([facility] st Contact Info) Description 03/31/2025 Refill [facility] [address] [place], [place] [phone] Divina Lo MD [address] [place], [place] [phone] Anxious depression Social History Tobacco Use Types [...] is your housing situation today? I have maunela fischer 11/26/[address] you [...] Description 04/29/2025 1:45 PM EDT Office Visit [facility] [address] [place] [address] Divina Lo MD [address] [place] [phone] documented as of this encounter Visit Diagnoses Diagnosis Anxious depression documented in this encounter Additional Health Concerns Assessment Noted Time PHQ-9 Depression Total Score: 0 01/05/20 24 1:44 PM EDT documented as of this encounter Care Teams Manufacturing Production Manager Relationship Specialty Start Date End Date Divina Lo MD [address] [place] [phone] PCP - General Family Medicine 04/15/18 Robert Mendoza FNP [address] [place] [phone] Nurse Practitioner Family Medicine 07/04/23 documented as of this encounter
== END 2025-04-05 14:05 | disposition home or self-care (01) ==
LOC: HO.MAMMO 14:04
PROVIDERS: PCP Internal Medicine; Visit Provider Internal Medicine
DX: Z12.31 Encounter for screening mammogram for malignant neoplasm of breast (principal)
CPT/HCPCS: 77063; 77067

== ENCOUNTER → 2025-04-05 14:15 | Outpatient (BNV) | payer OTHER, SELFPAY | PROVIDERS: PCP Internal Medicine; Visit Provider Internal Medicine | DX: Z12.31 Encounter for screening mammogram for malignant neoplasm of breast (principal) | CPT/HCPCS: 77063; 77067 ==

== ENCOUNTER 2025-07-19 16:24 | Outpatient (REF) | payer OTHER, SELFPAY ==
--- OUTSIDE RECORDS SUMMARY | 2025-07-19 13:00 | XMS_ITS | Encounter Summary ---
Author Organization [employer] Address [address] [address] [facility] [address] [place] [address] Care Team Providers Care Staffing Specialist Name Role Phone Divina Lo MD Primary Care Provide r Robert Mendoza Unavailable Unavailable Reason for Visit * Reason Comments CHAIN PERSON Initial Encounter Details Date Type Department Care Team (Latest Contact Info) Description 07/19/2025 1:00 PM EST Clinical Support [facility] MEDICINE [address] [place] [address] Effie Joshi RN Long-term current use of benzodiazepine (Primary Dx) Social History Tobacco Use Types Packs/Day Years Used Date Smoking Tobacco: Never Smokeless Tobacco: Never Alcohol Use Standard Drinks/Week Comments Never 0 (1 standard drink = 0.6 oz pur e alcohol) Depression Answer Date Recorded Patient Health Questionnaire-9 Score 27 04/29/2025 Patient Health Questionnaire-9 Score 27 04/29/2025 Last PHQ-9: Questionnaire Data Not on file 0 04/29/2025 Housing Stability Answer Date Recorded What is [...] Answer Date Recorded Patient Health Questionnaire-2 Score 6 04/29/2025 Internet Access Answer Date Recorded Internet Access Q1 No 11/26/2024 Internet Access Q2 I cannot afford it 11/26/2024 Comments Unknown Sex and Gender Information Value Date Recorded Sex Assigned at Female 06/03/2022 10:14 AM EDT Legal Sex Female 10:14 AM EDT Gender Identity Female 06/03/2022 10:14 AM EDT Sexual Orientation Choose not to disclose 2021 10:14 AM EDT documented as of this encounter Functional Status * Over the last 2 weeks, how often have you been bothered by any of the following problems? Question Answer Date of Assessment Author Feeling nervous, anxious, or on edge 0 07/04 1:47 PM Effie Eddy RN Not being able to stop or co ntrol worrying 0 07/19/2025 1:47 PM Effie Eddy RN Worrying too much about diff erent things 0 07/19/2025 1:47 PM Effie Eddy RN Trouble relaxing 0 07/19/2025 1:47 PM Effie MORENO ae, RN Being so restless that it is hard to sit still 0 07/19/2025 1:47 PM Effie Eddy RN Becoming easily annoyed or irritable 0 07/04 1:47 PM Effie Eddy RN Feeling afraid as if somethi ng awful might happen 0 07/19/2025 1:47 PM Effie Eddy RN BRI-7 Total Score 0 07/19/2025 1:47 PM Effie Eddy RN documented as of this encounter Progress Notes * Effie Joshi RN - 07/19/2025 1:00 PM EST SUBJECTIVE: Divina Berger is a 75 y.o. year old female who presents for CHAIN PERSON Initial Preferred language for medical information: Tamazight Interpreted needed: Yes. Interpretation provided by staff member Desi Warren Divina Berger does report adherence to Clonazepam (Klonopin) 0.5 mg, take 1 tablet every 24 hours PRN, last refilled 07/07/2025. The patient last took Clonazepam (Klonopin) on: 07/18/2025 Medication effective: Yes Sleep habits: sleeps well with her medication Therapist: Denies therapist and declines referral Pt has [facility] for CHAIN PERSON Initial X3 prior to to days appointment. OBJECTIVE: LOCAL SALES ASSOCIATE checked: 07/19/2025 Pill count completed for Clonazepam (Klonopin), count today is 1 , anticipated count should be 0, this is as expected. Last PCP visit: 04/29/2025 Opioid risk score: 1 BRI-7 Total Score: 0 (07/19/2025 1:47 PM) Controlled substance agreement signed: Controlled Substance Agreement 07/19/2025 Controlled substance agreement: signed and up to date CHAIN PERSON Tier: 2, per PCP, pt to be Tele CHAIN PERSON visits after todays visit Current Medications[1] Smoking status: Denies ETOH use: Denies Illicit substances: Denies Marijuana use: Denies Lab Results Component Value Date POCTHC Negative 07/19/2025 POCCOCAINEUR Negative 07/19/2025 POCOPIATEUR Negative 07/19/2025 DOAUR Negative 07/19/2025 POCAMPHETAMI Negative 07/19/2025 POCBENZODIUR Negative 07/19/2025 POCBARBSCRN Negative 07/19/2025 POCMETHADOUR Positive (A) 07/19/2025 POCBUPSCRN Negative 07/19/2025 POCTCAUR Negative 07/19/2025 POCMDMAUR Negative 07/19/2025 POCOXYCODONE Negative 07/19/2025 POCPHENCYCUR Negative 07/19/2025 PROPOXUR Negative 07/19/2025 FENTANYLURIN Negative 07/19/2025 Reviewed UTOX results. Explained I would send urine out for lab confirmation and call her if the results are abnormal. ASSESSMENT: Encounter Diagnosis Name Primary? Long-term current use of benzodiazepine Yes PLAN: Information on acupuncture given: Yes Narcan education provided: Yes Narcan prescription: requested from PCP Will update PCP on BRI & Opioid risk scoring, UTOX results, request prescription for Narcan andClonazepam refill. Controlled substance agreement reviewed and signed. A copy was given to the patient. Divina Berger will continue taking medications as prescribed and has verbalized understanding of care plan. Future Appointments Date Time Provider Department Center 07/22/2025 3:15 PM Divina Hill MD MEDICINE [facility] 10/21/2025 1:30 PM Effie Joshi RN MEDICINE [facility] Effie Joshi RN [1] Current Outpatient Medications: clonazePAM (KlonoPIN) 0.5 MG tablet, Take 1 tablet (0.5 mg) by mouth if needed at bedtime for anxiety., Disp: 7 tablet, Rfl: 0 atorvastatin (Lipitor) 40 MG tablet, Take 1 tablet (40 mg) by mouth Once per day., Disp: 30 tablet,Rfl: 11 Blood Pressure Monitoring (Blood Pressure Cuff) misc, 1 each Once daily., Disp: 1 each, Rfl: 0 documented in this encounter Plan of Treatment Upcoming Encounters Date Type Department Care Team (Late st Contact Info) Description 07/22/2025 3:15 PM EST Office Visit [address] [address] Divina Lo MD [address] [place] [phone] 10/21/2025 1:30 PM EDT Telemedicine [address] [address] Effie Joshi, GOVIND Scheduled Orders Name Type Priority Associated Diagnoses Orde r Schedule Drug Monitoring, Benzodiazepines, Quantitative, Urine Lab Routine Long-term current use of benzodiazepine Ordered: 07/19/2025 documented as of this encounter Procedures Procedure Name Priority Date/Time Associated Diagnosis Comments POCT CASE-14 URINE DRUG SCREEN Routine 07/19/2025 1:45 PM EST Long-term current use of benzodiazepine METHADONE SCREEN, URINE Routine 07/19/2025 1:00 PM EST Long-term current use of benzodiazepine documented in this encounter Results * (ABNORMAL) POCT CASE-14 Urine Drug Screen (07/19/2025 1:45 PM EST) THC Negative Negative Cocaine Screen, Urine Negative Negative Opiate Screen, Urine Negative Negative Methamphetamine Screen Urine Negative Negative Amphetamine Screen, Urine Negative Negative Benzodiazepines Screen, Urine Negative Negative Comment:CHAIN PERSON pt on Clonazepam Barbiturate Screen, Urine Negative Negative Methadone Screen, Urine Positive(A) Negative Buprenophine Screen, Urine Negative Negative TCA, Urine Negative Negative MDMA Urine Negative Negative ng/mL Oxycodone Screen, Urine Negative Negative Phencyclidine (PCP), Urine Negative Negative Propoxyphene, Urine Negative Negative Fentanyl, Urine Negative Negative Urine Urine specimen obtained by clean catch procedure / Unknown 07/19/2025 1:45 PM EST Narrative Effie Joshi RN - 07/19/2025 1:45 PM EST UTOX cup Lot#[id number] Exp. 07/04/26 Internal Pass Control us Divina Hill MD POINT OF CARE TEST EN TER/EDIT ORDERABLES Final Result * Drug Monitoring, Methadone Metabolite, Screen, Urine (07/19/2025 1:00 PM EST) Methadone Screen, Urine Not Detected Not Detect ng/mL [facility] Comment:Methadone cut-off is 300 ng/mL.Positive results are unconfirmed and should not be used fornon-medical purposes. Urine (Urine, Random) 07/19/2025 1:00 PM EST 07/19/2025 4:25 PM EST us Divina Hill MD LAB URINE ORDERABLES Final Result [facility] [address] [place] [address] [phone] documented in this encounter Visit Diagnoses Diagnosis Long-term current use of benzodiazepine- Primary documented in this encounter Additional Health Concerns Assessment Noted Time PHQ-9 Depression Total Score: 27 09/2 025 1:54 PM EDT documented as of this encounter Care Teams Staffing Specialist Relationship Specialty Start Date End Date Divina Lo MD [address] [place] [address] PCP - General Family Medicine 04/15/18 Robert Mendoza FNP [address] [place] [address] Nurse Practitioner Family Medicine 07/04/23 documented as of this encounter
--- OUTSIDE RECORDS SUMMARY | 2025-07-19 20:14 | XMS_ITS | Encounter Summary ---
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 OFFICER Agreement signed today 07/19/2025 Encounter Details Date Type Department Care Team (Late st Contact Info) Description 07/19/2025 Refill [facility] [address] [place] [address] Effie Joshi RN Anxiety with depression Social History Tobacco Use Types Packs/Day [...] Eddy RN documented as of this encounter Miscellaneous Notes * Telephone Encounter - Effie Joshi RN - 07/19/2025 1:28 PM EST 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 appointment today UTOX Neg BZO, Pos MTD, sent out for confirmation Opioid risk score: 1 BRI-7 Total Score: 0 (07/19/2025 1:47 PM) documented in this encounter Plan of Treatment Upcoming Encounters Date Type Department Care Team (Late st Contact Info) Description 07/22/2025 3:15 PM EST Office Visit [facility] [address] [place] [phone] Divina Lo MD [address] [place] [address] 10/21/2025 1:30 PM EDT Telemedicine [address] [address] Effie Joshi RN documented as of this encounter Visit Diagnoses Diagnosis Anxiety with depression documented in this encounter Additional Health Concerns Assessment Noted Time PHQ-9 Depression Total Score: 27 025 1:54 PM EDT documented as of this encounter Care Teams Gas Load Dispatcher Relationship Specialty Start Date End Date Divina Lo MD [address] [place] [phone] PCP - General Family Medicine 04/15/18 Robert Mendoza FNP [address] [place] [phone] Nurse Practitioner Family Medicine 07/04/23 documented as of this encounter
--- OUTSIDE RECORDS SUMMARY | 2025-07-19 20:14 | XMS_ITS | Encounter Summary ---
Author Organization [employer] Address [address] [facility] 7t [place] [address] Care Team Providers Care Cut Roll Machine Operator Name Role Phone Divina Lo MD Primary Care Provide r Robert Mendoza Unavailable Unavailable Reason for Visit * Reason Comments Med Refill Encounter Details Date Type Department Care Team ([facility] st Contact Info) Description 03/31/2025 Refill [facility] MED[facility]INE [address] [place], [place] [phone] Divina Lo MD [address] [place], [place] [phone] Anxious depression Social History Tobacco Use Types [...] Description 07/22/2025 3:15 PM EST Office Visit [facility] MED[facility]INE [address] [place] [phone] Divina Lo MD [address] [place] [phone] 10/21/2025 1:30 PM EDT Telemedicine [address] [address] Effie Joshi RN documented as of this encounter Visit Diagnoses Diagnosis Anxious depression documented in this encounter Additional Health Concerns Assessment Noted Time PHQ-9 Depression Total Score: 0 01/05/20 24 1:44 PM EDT documented as of this encounter Care Teams Cut Roll Machine Operator Relationship Specialty Start Date End Date Divina Lo MD [address] [place] [phone] PCP - General Family Medicine 04/15/18 Robert Mendoza FNP [address] [place] [phone] Nurse Practitioner Family Medicine 07/04/23 documented as of this encounter
--- OUTSIDE RECORDS SUMMARY | 2025-07-19 20:14 | XMS_ITS | Clinical Summary ---
Author Organization [employer] Address [address] [facility] 7t [place] [address] Care Team Providers Care Distribution Agent Name Role Phone Divina Lo MD Primary Care Provide r Robert Mendoza Unavailable Unavailable Allergies No known active allergies Medications Blood Pressure Monitoring (Blood Pressure Cuff) miscIndications :Essential hypertension 1 each Once daily. 1 each 03/05/20 24 Active atorvastatin (Lipitor) 40 MG tabletIndicatio ns:Essential hypertension Take 1 tablet (40 mg) by mouth Once per day. 30 tablet 11 04/29/20 25 2025 Active clonazePAM (KlonoPIN) 0.5 MG tabletIndicatio ns:Anxiety with depression Take 1 tablet (0.5 mg) by mouth if needed at bedtime for anxiety. 28 tablet 5 2:43 PM EST 07/19/20 25 2025 Active naloxone (Narcan) 4 mg/0.1 mL nasal sprayIndication s:Anxiety with depression Administer 1 spray (4 mg) into affected nostril(s) if needed for opioid reversal. May repeat every 2-3 minutes if needed, alternating nostrils, until medical assistance becomes available. 2 each 3 5 2:43 PM EST 07/19/20 25 2025 Active clonazePAM (KlonoPIN) 0.5 MG tabletIndicatio ns:Anxiety with depression Take 1 tablet (0.5 mg) by mouth if needed at bedtime for anxiety for up to 10 days. 10 tablet 06/13/20 25 2024 Discontinued(R eorder (will not trigger notification to Pharmacy)) clonazePAM (KlonoPIN) 0.5 MG tabletIndicatio ns:Anxiety with depression Take 1 tablet (0.5 mg) by mouth if needed at bedtime for anxiety. 7 tablet 11:51 AM EST 07/04/20 25 2024 Discontinued(R eorder (will not trigger notification to Pharmacy)) Active Problems Problem Noted Date Diagnosed Date Anxiety with depression 04/29/2025 Assessment & Plan (04/29/2025 7:33 PM EDT): Counseling done she declines N referral Ill prescribed her clonazepam, she will be under [employer] Dyslipidemia 04/29/2025 Assessment & Plan (04/29/2025 7:35 PM EDT): Counseling about diet and exercise done Lipid panel ordered Counseling about taking her atorvastatin daily done Long-term current use of benzodiazepine 02/08/20 25 Bradycardia 03/05/2024 Colon cancer screening declined 03/05/2024 Encounter for screening mamm ogram for malignant neoplasm of breast 11/11/2023 Colon cancer screening 11/11/2023 Overweight (BMI 25.0-29.9) 11/11/2023 Assessment & Plan (11/11/2023 4:59 PM EDT): I advise weight reduction to see if this helps with the problem with her breast Stage 3 chronic kidney disease (CMS/HCC) 024 Assessment & Plan (04/29/2025 7:31 PM EDT): [facility] ordered for monitoring Syncope 10/27/2023 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 Doing very well. Taking Clonazepam 0.5 mg at bedtime only. Since this provider will be retiring, patient is now referred back to her PCP for further medication management. Any issues or concerns, call [facility]. All her questions were answered and I [...] plan. Hypertensive disorder 02/17/2018 Benzodiazepine dependence, continuous ([facility]) 06/23/2017 Gastroesophageal reflux disease without esophagi tis 06/23/2017 Osteoarthritis of knee 06/23/2017 Vitamin D deficiency 06/23/2017 Whole body pain 06/23/2017 Mood disorder 04/16/2017 Non-cardiac chest pain 10/11/2016 Seasonal allergic rhinitis 10/11/2016 Essential hypertension 03/14/2016 Assessment & Plan (04/29/2025 7:31 PM EDT): Patient is not currently on medications, I advised low Na diet and to monitor her blood pressure at home if BP is persistently high above 140/80mmhg to report back to us Assessment & Plan (03/05/2024 3:48 PM EDT): [...] Encounters Date Type Department Care Team Description 07/19/2025 1:00 PM EST Clinical Support [facility] MEDICINE [address] [place] [address] Effie Joshi, RN Long-term current use of benzodiazepine (Primary Dx) 07/19/2025 Refill [facility] MEDICINE [address] [place] [address] Effie Joshi, RN Anxiety with depression 07/19/2025 Travel 07/13/2025 Patient Outreach [facility] MEDICINE [address] [place] [address] Divina Lo MD Pre-visit Planning (SDOH screening completed on 11/26/2024) 07/04/2025 Refill [facility] [address] [place] [address] Divina Lo MD Anxiety with depression 06/21/[address] [address] Effie Joshi, GOVIND [facility] [employer]S SERVER Initial #3 06/13/[address] [address] Divina Lo MD Anxiety with depression 05/30/[address] [address] Effie Joshi, GOVIND GORD[facility] [employer] Initial #1 05/16/[address] [address] Divina Lo MD dec recall 05/13/[address] [address] Divina Lo MD Anxiety with depression 05/02/[address] [address] Effie Joshi RN Schedule [employer] Initial X2 04/29/2025 1:45 PM EDT Office Visit [address] [address] Divina Lo MD Anxiety with depression (Primary Dx); Essential hypertension; Benzodiazepine dependence, continuous ([facility]); Stage 3 chronic kidney disease, unspecified whether stage 3a or 3b CKD ([facility]); Dyslipidemia; Encounter for immunization 04/29/2025 Travel 04/27/[address] [address] Divina Lo MD chart prep from Last 3 Months Immunizations Immunization Administration Dates Next Due Influenza High-dose Quadriva lent Preservative Free 07/18/2020 Influenza injectable quadriv alent IIV4 with preservative 06/23/2017,10/27/2015 Influenza injectable quadriv alent preservative free 07/02/2021 Influenza, High Dose Seasona l, Preservative Free 04/29/2025,07/06/2019,05/12/2018 Influenza, IIV3, injectable 05/19/2014, 1 Influenza, Split [...] Sign Reading Time Taken Comments Blood Pressure 134/88 04/29/2025 1:50 PM EDT Pulse 60 04/29/2025 1:13 PM EDT Temperature 36.7 C (98 F) 04/29/2025 1:13 PM EDT Respiratory Rate 20 04/29/2025 1:13 PM EDT Oxygen Saturation 97% 03/05/2024 3:11 PM EDT Inhaled Oxygen Concentration - - Weight 64.7 kg (142 lb 9.6 oz) 04/29/2025 1:13 P M EDT Height 152.4 cm (5') 04/29/2025 1:13 PM EDT Body Mass Index 27.85 04/29/2025 1:13 PM EDT Plan of Treatment Upcoming Encounters Date Type Department Care Team (Late st Contact Info) Description 07/22/2025 3:15 PM EST Office Visit [facility] MEDICINE [address] [place] [address] Divina Lo MD [address] [place] [phone] 10/21/2025 1:30 PM EDT Telemedicine [address] [address] Effie Joshi, RN Health Maintenance Due Date Last Done Comments Alcohol/Substance Use Screening 1962 Hepatitis C Screening 1967 Zoster Vaccines (2 of 3) 11/26/2013 10/01/2013 DTaP/Tdap/Td Vaccines (2 - Td or Tdap) 12/04/2021 12/05/2011, 03/06/2006 RSV Patients and Patients Aged 60 years or older (1 - 1-dose 75+ series) 2024 COVID-19 Vaccine (3 - season) 2025 11/17/2020, 10/20/2020 Depression Monitoring 10/27/2025 04/29/2025, 025 SDOH Screening 11/26/2025 11/26/2024 Tobacco Screening 11/26/2025 11/26/2024 Lipid Panel 11/24/2028 11/25/2023 Pneumococcal Vaccine: 50+ Years Completed 11/11/2023, 07/02/2021, 08/31/2017, Additional history exists Influenza Vaccine Completed 04/29/2025, , 07/18/2020, Additional history exists HIB Vaccines Aged Out [...] PM EST Long-term current use of benzodiazepine LIPID PANEL, STANDARD Routine 11/25/2023 12:37 PM EDT Essential hypertension from Last 3 Months or Most Recently Relevant to Health Maintenance Results * (ABNORMAL) POCT CASE-14 Urine Drug Screen (07/19/2025 1:45 PM EST) THC Negative Negative Cocaine Screen, Urine Negative Negative Opiate Screen, Urine Negative Negative Methamphetamine Screen Urine Negative Negative Amphetamine Screen, Urine Negative Negative Benzodiazepines Screen, Urine Negative Negative Comment:[employer] pt on Clonazepam Barbiturate Screen, Urine Negative [...] - 07/19/2025 1:45 PM EST UTOX cup Lot#[id number] Exp. 07/04/26 Internal Pass Control Divina Hill MD POINT OF CARE TEST EN TER/EDIT ORDERABLES Final Result * Drug Monitoring, Methadone Metabolite, Screen, Urine (07/19/2025 1:00 PM EST) Pathologist [facility] Methadone Screen, Urine Not Detected Not Detect ng/mL [facility] Comment:Methadone cut-off is 300 ng/mL.Positive results are unconfirmed and should not be used fornon-medical purposes. Urine (Urine, Random) 07/19/2025 1:00 PM EST 07/19/2025 4:25 PM EST us Divina Hill MD LAB URINE ORDERABLES Final Result [facility] [address] [place] [phone] * (ABNORMAL) Lipid Panel, Standard (11/25/2023 12:37 PM EDT) Triglycerides 158(H) <150 mg/dL [facility] Comment:Desirable Triglyceri de: less than 150 mg/dLBorderline High Triglyceride 150-199 mg/dLHigh Triglyceride: 200-499 mg/dLVery High Triglyceride: greater than or equal to 5OO mg/dL Cholesterol 220(H) <200 mg/dL [facility] Comment:Desirable Cholestero l: less than 200 mg/dLBorderline High Cholesterol: 200-239 mg/dLHigh Cholesterol: greater than 239 mg/dL LDL Cholesterol Calculated 155(H) <100 mg/dL [facility] Comment:Desirable LDL: less than 100 mg/dLNear Optimal/Above Optimal LDL: 110- 129 mg/dLBorderline High LDL: 130-159 mg/dLHigh LDL: 160-189 mg/dLVery High LDL: greater than or equal to 190 mg/dL HDL Cholesterol 34(L) >40 mg/dL [facility] Comment:Desirable HDL: great er than 40 mg/dL Note: This HDL assay may give artificially low results in patients with liver disease. Blood Venous blood specimen / Unknown 11/25/2023 12:37 PM EDT 11/25/2023 1:10 PM EDT us Divina Hill MD LAB BLOOD ORDERABLES Final Result [facility] [address] [place] [phone] from Last 3 Months or Most Recently Relevant to Health Maintenance Insurance [facility] [employer] OPTIONS (HMO D-SNP) Care Teams Distribution Agent Relationship Specialty Start Date End Date Divina Lo MD [address] [place] [address] PCP - General Family Medicine 04/15/18 Robert Mendoza FNP [address] [place] [phone] Nurse Practitioner Family Medicine 07/04/23
--- OUTSIDE RECORDS SUMMARY | 2025-07-19 20:14 | XMS_ITS | Encounter Summary ---
Author Organization [employer] Address [address] [facility] 7t [place] [address] Care Team Providers Care Workday Financials Consultant Name Role Phone Divina Lo MD Primary Care Provide r Robert Mendoza Unavailable Unavailable Encounter Details Date Type Department Care Team (Latest Contact Info) Description 07/19/2025 Travel Social History Tobacco Use Types Packs/Day Years [...] Eddy RN documented as of this encounter Plan of Treatment Upcoming Encounters Date Type Department Care Team (Late st Contact Info) Description 07/22/2025 3:15 PM EST Office Visit [facility] [address] [place] [phone] Divina Lo MD [address] [place] [phone] 10/21/2025 1:30 PM EDT Telemedicine [facility] [address] [place] [address] [phone] Effie Joshi, RN documented as of this encounter Visit Diagnoses Not on filedocumented in this encounter Additional Health Concerns Assessment Noted Time PHQ-9 Depression Total Score: 27 025 1:54 PM EDT documented as of this encounter Care Teams Workday Financials Consultant Relationship Specialty Start Date End Date Divina Lo MD [address] [place] [address] PCP - General Family Medicine 04/15/18 Robert Mendoza FNP [address] [place] [address] Nurse Practitioner Family Medicine 07/04/23 documented as of this encounter
--- OUTSIDE RECORDS SUMMARY | 2025-07-19 20:14 | XMS_ITS | Encounter Summary ---
Author Organization [employer] Address [address] [place] [address] 7t [place] [address] Care Team Providers Care Divisional Merchandising Manager Name Role Phone Divina Lo MD Primary Care Provide r Robert Mendoza Unavailable Unavailable Encounter Details Date Type Department Care Team (Late Contact Info) Description 07/01/[address] [phone] Bree Saez Social History Tobacco Use Types [...] Department Care Team (Late Contact Info) Description 07/22/2025 3:15 PM EST Office Visit [facility] [address] [place] [address] [phone] Divina Lo MD [address] [place] [address] [phone] 10/21/2025 1:30 PM EDT Telemedicine [facility] [address] [place] [address] [phone] Effie Joshi RN documented as of this encounter Visit Diagnoses Not on filedocumented in this encounter Additional Health Concerns Assessment Noted Time PHQ-9 Depression Total Score: 2 02/19/20 12:49 PM EDT documented as of this encounter Care Teams Divisional Merchandising Manager Relationship Specialty Start Date End Date Divina Lo MD [address] [place] [address] PCP - General Family Medicine 04/15/18 Robert Mendoza FNP [address] [place] [address] Nurse Practitioner Family Medicine 07/04/23 documented as of this encounter
--- OUTSIDE RECORDS SUMMARY | 2025-07-19 20:14 | XMS_ITS | Encounter Summary ---
Author Organization [employer] Address [address] [facility] 7t [place] [address] Care Team Providers Care Steel Tester Name Role Phone Divina Lo MD Primary Care Provide r Robert Mendoza Unavailable Unavailable Reason for Visit * Reason Onset Date Comments Med Refill 01/09/2024 Encounter Details Date Type Department Care Team ([facility] st Contact Info) Description 01/09/2024 Telephone [facility] [address] [place] [address] Divina Lo MD [address] [place] [address] Med Refill Social History Tobacco Use Types [...] has refills available. Spoke with [facility] pharmacy, they are filling it now and will alert her when its ready. * Telephone Encounter - Lynn Martinez - 01/09/2024 2:50 PM EDT TC from pt requesting medication refill. Medications needing refill : clonazePAM (KlonoPIN) 0.5 MG tablet To be sent to: [facility] Pharmacy documented in this encounter Plan of Treatment Upcoming Encounters Date Type Department Care Team (Late st Contact Info) Description 07/22/2025 3:15 PM EST Office Visit [facility] [address] [place] [phone] Divina Lo MD [address] [place] [address] 10/21/2025 1:30 PM EDT Telemedicine [facility] [address] [place] [address] [phone] Effie Joshi, RN documented as of this encounter Visit Diagnoses Diagnosis Anxious depression documented in this encounter Additional Health Concerns Assessment Noted Time PHQ-9 Depression Total Score: 0 01/05/20 24 1:44 PM EDT documented as of this encounter Care Teams Steel Tester Relationship Specialty Start Date End Date Divina Lo MD [address] [place] [address] PCP - General Family Medicine 04/15/18 Robert Mendoza FNP [address] [place] [address] Nurse Practitioner Family Medicine 07/04/23 documented as of this encounter
--- OUTSIDE RECORDS SUMMARY | 2025-07-19 20:14 | XMS_ITS | Encounter Summary ---
Author Organization [employer] Address [address] [facility] 7t [place] [address] Care Team Providers Care Plug And Mold Finisher Name Role Phone Divina Lo MD Primary Care Provide r Robert Mendoza Unavailable Unavailable Reason for Visit * Reason Onset Date Comments Nurse Triage 09/21/2024 Encounter Details Date Type Department Care Team ([facility] st Contact Info) Description 09/21/2024 Telephone [facility] [address] [place] [address] Divina Lo MD [address] [place], [place] [phone] Nurse Triage Social History Tobacco Use Types [...] PM EST Sent message to PCP on [employer] as well as in [employer]. PCP answered my [employer] request and she states Yes,I will fill pt. Clonazepam and she can pick it up at Pharmacy. I called pt. And told her in simpleterms that PCP said yes to fill RX for Clonazepam and she can pick it up tomorrow morning at [facility]. Pt. States understanding. * Telephone Encounter - [...] Clonazepam so that she can go to [facility] and start getting restful sleep again . [...] higher acuity questions Please contact pt at [phone]. (Denied Special Machine Stitcher, with Niece.) documented in this encounter Plan of Treatment Upcoming Encounters Date Type Department Care Team (Late st Contact Info) Description 07/22/2025 3:15 PM EST Office Visit [address] [address] Divina Lo MD [address] [place] [phone] 10/21/2025 1:30 PM EDT Telemedicine [address] [address] Effie Joshi RN documented as of this encounter Visit Diagnoses Diagnosis Anxious depression documented in this encounter Additional Health Concerns Assessment Noted Time PHQ-9 Depression Total Score: 0 01/05/20 24 1:44 PM EDT documented as of this encounter Care Teams Plug And Mold Finisher Relationship Specialty Start Date End Date Divina Lo MD [address] [place] [phone] PCP - General Family Medicine 04/15/18 Robert Mendoza FNP [address] [place] [phone] Nurse Practitioner Family Medicine 07/04/23 documented as of this encounter
--- OUTSIDE RECORDS SUMMARY | 2025-07-19 20:14 | XMS_ITS | Encounter Summary ---
Author Organization [employer] Address [address] [facility] 7t [place] [address] Care Team Providers Care Director Game Name Role Phone Divina Lo MD Primary Care Provide r Robert Mendoza Unavailable Unavailable Reason for Visit * Reason Onset Date Comments Appointment Request 07/30/2024 Encounter Details Date Type Department Care Team ([facility] st Contact Info) Description 07/30/2024 Telephone [facility] [address] [place] [address] Divina Lo MD [address] [place] [address] Appointment Request Social History Tobacco Use Types [...] Description 07/22/2025 3:15 PM EST Office Visit [facility] [address] [place] [phone] Divina Lo MD [address] [place] [phone] 10/21/2025 1:30 PM EDT Telemedicine [facility] [address] [place] [phone] Effie Joshi, GOVIND documented as of this encounter Visit Diagnoses Not on filedocumented in this encounter Additional Health Concerns Assessment Noted Time PHQ-9 Depression Total Score: 0 01/05/20 24 1:44 PM EDT documented as of this encounter Care Teams Director Game Relationship Specialty Start Date End Date Divina Lo MD [address] [place] [phone] PCP - General Family Medicine 9/12/18 Robert Mendoza FNP [address] [place] [address] Nurse Practitioner Family Medicine 07/04/23 documented as of this encounter
== END 2025-07-19 16:25 | disposition home or self-care (01) ==
LOC: HO.LNP 16:24
PROVIDERS: Visit Provider Internal Medicine
DX: Z79.899 Other long term (current) drug therapy (principal)
CPT/HCPCS: 80307; 80346